=== PATIENT | female | born 1980 | race Caucasian/White ===

== ENCOUNTER 2024-11-11 15:49 | Emergency (ER) | payer OTHER, SELFPAY ==
--- NOTE | ~2024-11-11 | XR_ITS ---
XR chest 2V Ordering provider: Ryan Saldaña MD History: 44 years Female with . dyspnea on exertion . Comparison: None. FINDINGS: MEDIASTINUM: The cardiac silhouette is not enlarged. LUNGS: No infiltrates, effusions or pneumothorax. OTHER: No free air under the diaphragm. Degenerative changes of the spine. IMPRESSION: No acute cardiopulmonary pathology. Reviewed, dictated and finalized at location A.
--- OUTSIDE RECORDS SUMMARY | 2024-11-11 15:51 | XMS_ITS | Clinical Summary ---
Author Organization [facility] Address [address] [facility] [place] [address] Phone Care Team Providers Care Ledger Poster Name Role Phone Swapna Soares Caitlin PAYNE Primary Care Provider Allergies Active Allergy Reactions Criticality Noted Date Comments Cephalexin Hives Medium 03/06/2017 Medications meclizine (ANTIVERT) 25 MG Tablet Take by mouth. Active FLUoxetine (PROZAC) 20 MG Capsule 02/28/2017 Active TRUE METRIX BLOOD GLUCOSE TEST Strip 12/26/2016 Active TRUEPLUS LANCETS 30G Misc 12/26/2016 Active JANUVIA 25 MG Tablet 01/24/2017 Active traZODone (DESYREL) 50 MG Tablet 02/28/2017 Active Active Problems Problem Noted Date Diagnosed Date Vertigo 04/02/2017 Family History Medical History Relation Name Comments Breast Cancer Maternal Aunt Ovarian Cancer Maternal Aunt Relation Name Status Comments Maternal Aunt Social History Tobacco Use Types Packs/Day Years Used Date Smoking Tobacco: Every Day Smokeless Tobacco: Never Tobacco Cessation:Ready to Q uit: No Alcohol Use Standard Drinks/Week Comments No 0 (1 standard drink = 0.6 oz pur e alcohol) Comments No Sex and Gender Information Value Date Recorded Sex Assigned at Not on file Legal Sex Female 11:31 PM CDT Gender Identity Not on file Sexual Orientation Not on file Last Filed Vital Signs Vital Sign Reading Time Taken Comments Blood Pressure 122/88 04/17/2018 10:51 AM CDT Pulse 79 04/17/2018 10:51 AM CDT Temperature 36.7 C (98.1 F) 04/17/2018 9:37 AM CDT Respiratory Rate 18 04/17/2018 9:37 AM CDT Oxygen Saturation 97% 04/17/2018 9:37 AM CDT Inhaled Oxygen Concentration - - Weight 80.6 kg (177 lb 9.6 oz) 04/17/2018 9:37 A M CDT Height 157.5 cm (5' 2) 04/17/2018 9:37 AM CDT Body Mass Index 32.48 04/17/2018 9:37 AM CDT Plan of Treatment Health Maintenance Due Date Last Done Comments Hepatitis C Virus (HCV) Screening 1979 TdaP Immunization 1979 Hepatitis B Immunization (1 of 3 - 19+ 3-dose series) 1998 Influenza Immunization (#1) 2024 SARS-COV-2 Immunization ( - 2023- season) 2024 Colonoscopy 2024 Colorectal Cancer Screening 2024 Respiratory Syncytial Virus (RSV) Immunization (Adult) (1 - 1-dose 75+ series) 2054 Discussion re Starting/Frequ ency of Mammograms Discontinued 01/11/2017 Meningococcal Immunization (ACWY) Aged Out No longer eligible based on patient's age to complete this topic Pneumococcal Immunization Combined Aged Out No longer eligible b ased on patient's age to complete this topic Rotavirus Immunization Aged Out No lo nger eligible based on patient's age to complete this topic Procedures Procedure Name Priority Date/Time Associated Diagnosis Comments [facility] DIAG BILATERAL DIGITAL W CAD Routine 01/11/2017 10:18 AM CDT Solitary cyst of left breast from Last 3 Months or Most Recently Relevant to Health Maintenance Results * [facility] DIAG BILATERAL DIGITAL W CAD (01/11/2017 10:18 AM CDT) Anatomical Region Laterality Modality breast Bilateral Mammography 01/11/2017 9:42 AM CDT Narrative 01/11/2017 5:06 PM CDT - [facility] DIAG BILATERAL DIGITAL W CAD BILATERAL DIGITAL DIAGNOSTIC MAMMOGRAM WITH CAD WITH MEDIOLATERAL MEDIOLATERAL OBLIQUE CRANIOCAUDAL: 01/11/2017 The study was acquired using digital technology and interpreted from soft copy. Current study was also evaluated with ICAD version 7.2. CLINICAL: Diagnostic baseline study. No personal history of cancer. Maternal aunt had breast cancer. Maternal aunt with ovarian cancer. Palpable lump right breast. COMPARISONS: Comparison is made to exams dated: 11/20/2012, 11/12/2012, and 11/13/2011 [facility]. BREAST TISSUE: The tissue of both breasts is predominantly fatty. FINDINGS: There is no abnormality seen in the right breast to correspond with the palpable lump indicated by a triangular skin marker. There is no abnormality seen in the right breast to correspond with the non-bloody nipple discharge. There is a mole marker on the left breast. No significant masses, calcifications, or other findings are seen in either breast. IMPRESSION: BI-RAD 0 ADDITIONAL IMAGING EVALUATION NEEDED There is no abnormality seen in the right breast to correspond with the palpable lump or the non-bloody nipple discharge. Ultrasound is performed. Dona Soto M.D. pw/:01/11/2017 10:21:01 Cell Room Operator: Sharonda Krishnamurthy(Lionel), [facility] Reading location: [facility] BI-RADS: 0 Additional Imaging Evaluation Needed Procedure Note Dona Soto MD - 01/11/2017 - [facility] DIAG BILATERAL DIGITAL W CAD BILATERAL DIGITAL DIAGNOSTIC MAMMOGRAM WITH CAD WITH MEDIOLATERAL MEDIOLATERAL OBLIQUE CRANIOCAUDAL: 01/11/2017 The study was acquired using digital technology and interpreted from soft copy. Current study was also evaluated with ICAD version 7.2. CLINICAL: Diagnostic baseline study. No personal history of cancer. Maternal aunt had breast cancer. Maternal aunt with ovarian cancer. Palpable lump right breast. COMPARISONS: Comparison is made to exams dated: 11/20/2012, 11/12/2012, and 11/13/2011 [facility]. BREAST TISSUE: The tissue of both breasts is predominantly fatty. FINDINGS: There is no abnormality seen in the right breast to correspond with the palpable lump indicated by a triangular skin marker. There is no abnormality seen in the right breast to correspond with the non-bloody nipple discharge. There is a mole marker on the left breast. No significant masses, calcifications, or other findings are seen in either breast. IMPRESSION: BI-RAD 0 ADDITIONAL IMAGING EVALUATION NEEDED There is no abnormality seen in the right breast to correspond with the palpable lump or the non-bloody nipple discharge. Ultrasound is performed. Dona oSto M.D. pw/:01/11/2017 10:21:01 Cell Room Operator: Sharonda Krishnamurthy(R), [facility] Reading location: [facility] BI-RADS: 0 Additional Imaging Evaluation Needed us Dragan Jie IMG MAMMO ORDERABLES Final Resul t from Last 3 Months or Most Recently Relevant to Health Maintenance Insurance MEDICAID [employer] Care Teams Ledger Poster Relationship Specialty Start Date End Date Swapna Soares APRN [address] [place] [address] [address] [place] [address] PCP - General Family Medicine 12/04/16
--- OUTSIDE RECORDS SUMMARY | 2024-11-11 15:51 | XMS_ITS | Clinical Summary ---
Author Organization [facility] Address [facility] [facility] [place] [address] Care Team Providers Care Leaf Stripper Name Role Phone Charlette Blankenship PA-C Primary Care Provider + Source Comments [facility] [employer],non-owned Affiliates and Associated Physician Practices is amultiple site organization consisting of ambulatory clinics and hospital sitesin [place], [place], [place] and [place]. This disclosure is being madepursuant to the Care Everywhere program and may not contain all information available regarding this patient. Last updated 18.[facility] [employer] Allergies Active Allergy Reactions Criticality Noted Date Comments Cephalexin Urticaria High 03/06/2017 Medications * Be aware that medications may not be up to date on this document. Alwaysverify current medications with the patient. albuterol HFA (Proventil; Ventolin; Proair) 108 (90 Base) MCG/ACT inhaler Take 2 (two) puffs by mouth every 4 hours as needed Active ammonium lactate (Lac-Hydrin) 12 % lotion Apply 1 application every day by topical route as directed for 30 days. 3 Active atorvastatin (Lipitor) 40 MG tablet TAKE 1 TABLET BY MOUTH ONCE DAILY IN THE EVENING FOR 30 DAYS Active cetirizine (ZyrTEC) 10 MG tablet TAKE 1 TABLET BY MOUTH ONCE DAILY DIRECTED FOR 30 DAYS Active clotrimazole (Lotrimin AF) 1 % solution APPLY TO THE AFFECTED AND SURROUNDING AREAS OF SKIN BY TOPICAL ROUTE 2 TIMES PER DAY IN THE MORNING AND EVENING 3 Active FLUoxetine (PROzac) 40 MG capsule Take 1 (one) capsule by mouth once daily Active fluticasone propionate (Flonase) 50 MCG/ACT nasal spray USE 1 SPRAY(S) IN EACH NOSTRIL ONCE DAILY NEEDED Active hydrOXYzine HCl (Atarax) 10 MG tablet Take 1 (one) tablet by mouth 2 times daily as needed Active meclizine (Antivert) 25 MG tablet Active metFORMIN CR osmotic 24hr (Fortamet) 1000 MG (OSM) tablet TAKE 1 BY MOUTH TWICE DAILY Active spironolactone (Aldactone) 100 MG tablet Take 1 (one) tablet by mouth once daily 30 tablet 11 3 Active minoxidil (Rogaine Extra Strength) 5 % foam Apply to affected area once daily 60 g 3 Active Active Problems Problem Noted Date Diagnosed Date 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 Chronic obstructive lung disease 04/30/2022 03/16/2023 Erythrocytosis 05/03/2019 03/16/2023 Social History Tobacco Use Types Packs/Day Years Used Date Smoking Tobacco: Never Assessed Comments Unknown Sex and Gender Information Value Date Recorded Sex Assigned at Not on file Legal Sex Female 6:03 AM CLOD PULLER Gender Identity Not on file Sexual Orientation Not on file Plan of Treatment Health Maintenance Due Date Last Done Comments COLOGUARD (AGES 45-75) - COLON CA SCREENING 1979 COLON MONITORING 1979 COLONOSCOPY - COLON CA SCREENING 1979 CT COLONOGRAPHY - COLON CA SCREENING 1979 Colorectal Cancer Screening 1979 FIT - COLON CA SCREENING 1979 FLEX SIG - COLON CA SCREENING 1979 MAMMOGRAM 1979 PAP SMEAR 1979 HIV SCREENING 1994 HEPATITIS C SCREENING 05/03/1997 DTAP/TDAP/TD VACCINES (1 - Tdap) 1998 HEPATITIS B VACCINE (1 of 3 - 19+ 3-dose series) 1998 PNEUMOCOCCAL VACCINE (1 of 2 - PCV) 1998 COVID-19 VACCINE ( - season) 2024 06/02/2021, 10/21/2020, 10/06/2020, Additional history exists DEPRESSION SCREENING 06/17/2024 INFLUENZA VACCINE (Season Ended) 2025 ZOSTER VACCINE (1 of 2) 2029 HIB VACCINE Aged Out No longer eligi ble based on patient's age to complete this topic HPV VACCINE Aged Out No longer eligi ble based on patient's age to complete this topic MENINGOCOCCAL (Group B) VACCINE SHARED DECISION-MAKING Aged Out No longer eligible based on patient's age to complete this topic MENINGOCOCCAL GROUPS A/C/Y/W VACCINE Aged Out No longer eligible based on patient's age to complete this topic Insurance Care Teams Leaf Stripper Relationship Specialty Start Date End Date Charlette Blankenship PA-C [address] [place] [phone] PCP - General Physician Investor Relations Manager 02/08/23
--- OUTSIDE RECORDS SUMMARY | 2024-11-11 15:51 | XMS_ITS | CONTINUITY OF CARE DOCUMENT ---
Author Name cassie matthews Address Unknown Organization [facility] Address [address] [facility] [address] [place] [address] Phone [phone] Care Team Providers Care Household Appliance Assembler Name Role Phone [place] Marshall MD Unavailable RUSSELL URIAS Unavailable RUSSELL URIAS Unavailable INSURANCE PROVIDERS Payer name Policy type / Coverage type [place] red libertarian [place] MEDICAID (2) Medicaid [id number]
[2024-11-11 15:53] VITALS: BP 146/96; PULSE 96; RESP 16; TEMP 36.4; O2SAT 99
--- NOTE | 2024-11-11 15:56 | ECG_ITS ---
Test Date: 2024-11-11 16:01:39 Measurements Intervals [place] Rate: 87 P: 64 DE: 138 QRS: -9 QRSD: 87 T: 37 QT: 361 QTc: 434 Interpretive Statements SINUS RHYTHM LEFT ATRIAL ENLARGEMENT [-0.15mV P WAVE IN V1/V2] LOW QRS VOLTAGE IN PRECORDIAL LEADS [QRS DEFLECTION < 1.0 mV IN CHEST LEADS] SEPTAL MYOCARDIAL INFARCTION , OF INDETERMINATE AGE [40+ ms Q WAVE IN V1/V2] No previous ECG available for comparison Electronically Signed On 11-12-2024 15:12:13 CDT by Francisco Layton M.D.
[2024-11-11 16:20] LABS: Basophils Absolute Auto 0.1 K/mm3 (0.0-0.1); Basophils Percent Auto 0.6 % (0.2-1.2); Eosinophils Absolute Auto 0.2 K/mm3 (0-0.3); Eosinophils Percent Auto 1.5 % (0-4.4); Hematocrit 46.2 % (37.0-47.0); Hemoglobin 15.7 g/dL (12.0-15.0); Immature Granulocyte Absolute 0.07 K/mm3 (0.00-0.031); Immature Granulocyte Percent A 0.5 % (0-0.5); Lymphocytes Absolute Auto 2.17 K/mm3 (0.9-3.2); Mean Corpuscular Hemoglobin 31.9 pg (26-34); Mean Corpuscular Volume 93.9 fl (80-100); Mean Platelet Volume 9.6 fl (7.4-10.4); Monocytes Absolute Auto 1.1 K/mm3 (0.1-0.6); Monocytes Percent Auto 7.9 % (2.6-8.5); Neutrophils Absolute Auto 10.8 K/mm3 (1.3-6.7); Neutrophils Percent Auto 74.5 % (45.5-73.1); Platelet Count Result 343 k/mm3 (150-375); Red Blood Count 4.92 M/mm3 (4.2-5.4); White Blood Count 14.4 K/mm3 (4.5-10.0)
[2024-11-11 16:30] LABS: Alanine Aminotransferase 20 U/L (6-35); Albumin Level 4.9 g/dL (3.5-5.1); Alkaline Phosphatase 73 U/L (38-126); Anion Gap 10 mmol/L (4-12); Aspartate Amino Transferase 26 U/L (14-36); Bilirubin,Total 0.5 mg/dL (0.2-1.3); Blood Urea Nitrogen 7 mg/dL (7-17); Calcium 9.8 mg/dL (8.4-10.2); Carbon Dioxide 25 mmol/L (22-30); Chloride 103 mmol/L (98-107); Estimated CRCL calculation 106 ml/min; Estimated Glomerular Filt Rate > 60; Glucose 126 mg/dL (65-110); Potassium 4.3 mmol/L (3.4-5.0); Sodium 138 mmol/L (137-145)
[2024-11-11 16:31] LABS: Prothrombin Time 13.1 Seconds (11.1-14.7)
[2024-11-11 16:33] LABS: Partial Thromboplastin Time 26.9 Seconds (22.3-36.8)
--- NOTE | 2024-11-11 16:40 | ED.CHESTPAIN ---
HPI - Chest Pain General Chief Complaint: Chest Pain <Apoorva Flood PA-C - Last Filed: 11/12/24 09:22> Stated Complaint: Chest/arm pain x 3-4 days <Apoorva Flood PA-C - Last Filed: 11/12/24 09:22> Time Seen by Provider: 11/11/24 16:40 <Apoorva Flood PA-C - Last Filed: 11/12/24 09:22> Focused HPI: This is a 44 year old female that presents to the ER for exertional shortness of breath. Ongoing over the last 4 days. Reports associated chest discomfort. Reports radiation into the arms. No history of CAD. She is a smoker. Reports family history of CAD. Denies fever, cough, lower extremity edema. GENERAL: Well-appearing, well-nourished, and in no acute distress. HEAD: Normocephalic, atraumatic. CHEST: Clear to auscultation. ?No respiratory distress. HEART: Regular rate and rhythm.? NEURO: ?Alert and oriented x3. Patient screened in triage and initial orders placed.? ?Additional care and disposition to be based upon?diagnostic testing and treatment. <MICHAEL Fajardo Last Filed: 11/12/24 09:22> Related Data Allergies/Adverse Reactions: Allergies Allergy/AdvReac Type Severity Reaction Status Date / Time cephalexin Allergy Intermediate Hives Verified 11/11/24 15:50 <Apoorva Flood PA-C - Last Filed: 11/12/24 09:22> Review of Systems Review of Systems: All systems reviewed & are unremarkable except as noted in HPI and below <Tianna Huffman APRN - Last Filed: 11/11/24 20:21> PMFSH Past Medical History Medical History: Medical History History of diabetes mellitus History of hypertension <Apoorva Flood PA-C - Last Filed: 11/12/24 09:22> Social History Social History: Social History Smoking status: Current every day smoker <Apoorva Flood PA-C - Last Filed: 11/12/24 09:22> Exam Narrative: GENERAL: Well appearing, well-nourished, non-toxic, in no acute distress. HEAD: Normocephalic, atraumatic. NECK: Supple. No adenopathy, no masses. RESPIRATORY: Airway patent, respirations nonlabored. Clear to auscultation bilaterally, no rales, rhonchi, wheezing. CARDIOVASCULAR: Regular rate and rhythm without murmurs, rubs, or gallops. Peripheral pulses 2+ and equal bilaterally. ABDOMINAL: Soft, nontender, nondistended, no hepatosplenomegaly. Normoactive BS. MUSCULOSKELETAL: Moves all extremities. Strength/ROM intact without gross deformities. SKIN: Warm, dry, normal color. No rashes. NEURO: A&O X3. Speech clear. Cranial nerves II-XII intact. No ataxic movements. PSYCHIATRIC: Appropriate mood and affect. Normal interaction. <Tianna Huffman APRN - Last Filed: 11/11/24 20:21> Course Vital Signs Vital signs: Vital Signs Temperature 97.6 F 11/11/24 15:53 Pulse Rate 96 11/11/24 15:53 Respiratory Rate 16 11/11/24 15:53 Blood Pressure 146/96 H 11/11/24 15:53 Pulse Oximetry 99 11/11/24 15:53 Temperature 97.6 F 11/11/24 15:53 Pulse Rate 96 11/11/24 15:53 Respiratory Rate 16 11/11/24 15:53 Blood Pressure 146/96 H 11/11/24 15:53 Pulse Oximetry 99 11/11/24 15:53 <Apoorva Flood PA-C - Last Filed: 11/12/24 09:22> Vital Signs Temperature 97.6 F 11/11/24 15:53 Pulse Rate 96 11/11/24 15:53 Respiratory Rate 16 11/11/24 15:53 Blood Pressure 146/96 H 11/11/24 15:53 Pulse Oximetry 99 11/11/24 15:53 Temperature 97.6 F 11/11/24 15:53 Pulse Rate 96 11/11/24 15:53 Respiratory Rate 16 11/11/24 15:53 Blood Pressure 146/96 H 11/11/24 15:53 Pulse Oximetry 99 11/11/24 15:53 <Tianna Huffman APRN - Last Filed: 11/11/24 20:21> MDM - Chest Pain MDM Narrative Medical decision making narrative: This is a 44 year old female that presents to the ER for exertional shortness of breath. Ongoing over the last 4 days. Reports associated chest discomfort. Reports radiation into the arms. No history of CAD. She is a smoker. Reports family history of CAD. Denies fever, cough, lower extremity edema. Patient has chosen to refuse further care. Risks of an incomplete evaluation and treatment were discussed with the patient, including potential for or permanent disability. Patient seems to understand these risks, but still desires to refuse further care. Patient recommended to follow up with PCP in the next possible interval. Specifically, patient was told they can return to the ED at any time to resume care. <Tianna Huffman APRN - Last Filed: 11/11/24 20:21> Differential Diagnosis Differential diagnosis: Likely atypical chest pain, st elevation myocardial infarction and other (pulmonary embolism) <Tianna Huffman APRN - Last Filed: 11/11/24 20:21> Lab Data Attestation: I reviewed the patient's lab results. <Tianna Huffman APRN - Last Filed: 11/11/24 20:21> Result diagrams: 11/11/24 16:12 11/11/24 16:12 <Apoorva Flood PA-C - Last Filed: 11/12/24 09:22> Labs: Lab Results 11/11/24 Range/Units 16:12 WBC 14.4 H (4.5-10.0) K/mm3 RBC 4.92 (4.2-5.4) M/mm3 Hgb 15.7 H (12.0-15.0) g/dL Hct 46.2 (37.0-47.0) % MCV 93.9 (80-100) fl MCH 31.9 (26-34) pg MCHC 34.0 (32-36) g/dl RDW 13.0 (11.5-14.5) % Plt Count 343 (150-375) k/mm3 MPV 9.6 (7.4-10.4) fl Immature Gran % (Auto) 0.5 (0-0.5) % Neut % (Auto) 74.5 H (45.5-73.1) % Lymph % (Auto) 15.0 L (18.3-44.2) % [place] % (Auto) 7.9 (2.6-8.5) % Eos % (Auto) 1.5 (0-4.4) % Baso % (Auto) 0.6 (0.2-1.2) % Lymph # (Auto) 2.17 (0.9-3.2) K/mm3 [place] # (Auto) 1.1 H (0.1-0.6) K/mm3 Eos # (Auto) 0.2 (0-0.3) K/mm3 Baso # (Auto) 0.1 (0.0-0.1) K/mm3 Abs Immat Gran (auto) 0.07 H (0.00-0.031) K/mm3 Absolute Neuts (auto) 10.8 H (1.3-6.7) K/mm3 Absolute Nucleated RBC 0.000 (0.0-0.012) K/mm3 Nucleated RBC % 0.0 (0.0-0.2) % PT 13.1 (11.1-14.7) Seconds INR 1.0 APTT 26.9 (22.3-36.8) Seconds Sodium 138 (137-145) mmol/L Potassium 4.3 (3.4-5.0) mmol/L Chloride 103 (98-107) mmol/L Carbon Dioxide 25 (22-30) mmol/L Anion Gap 10 (4-12) mmol/L BUN 7 (7-17) mg/dL Creatinine 0.48 L (0.7-1.0) mg/dL Estim Creat Clear Calc 106 ml/min Estimated GFR > 60 (59 - ) Glucose 126 H (65-110) mg/dL Calcium 9.8 (8.4-10.2) mg/dL Total Bilirubin 0.5 (0.2-1.3) mg/dL AST 26 (14-36) U/L ALT 20 (6-35) U/L Alkaline Phosphatase 73 (38-126) U/L Troponin I < 0.012 (0.000-0.034) ng/mL NT-Pro-B Natriuret Pep 71 (19.9-100) pg/mL Total Protein 9.0 H (6.3-8.2) g/dL Albumin 4.9 (3.5-5.1) g/dL <Apoorva Flood PA-C - Last Filed: 11/12/24 09:22> Lab Results 11/11/24 Range/Units 16:12 WBC 14.4 H (4.5-10.0) K/mm3 RBC 4.92 (4.2-5.4) M/mm3 Hgb 15.7 H (12.0-15.0) g/dL Hct 46.2 (37.0-47.0) % MCV 93.9 (80-100) fl MCH 31.9 (26-34) pg MCHC 34.0 (32-36) g/dl RDW 13.0 (11.5-14.5) % Plt Count 343 (150-375) k/mm3 MPV 9.6 (7.4-10.4) fl Immature Gran % (Auto) 0.5 (0-0.5) % Neut % (Auto) 74.5 H (45.5-73.1) % Lymph % (Auto) 15.0 L (18.3-44.2) % [place] % (Auto) 7.9 (2.6-8.5) % Eos % (Auto) 1.5 (0-4.4) % Baso % (Auto) 0.6 (0.2-1.2) % Lymph # (Auto) 2.17 (0.9-3.2) K/mm3 [place] # (Auto) 1.1 H (0.1-0.6) K/mm3 Eos # (Auto) 0.2 (0-0.3) K/mm3 Baso # (Auto) 0.1 (0.0-0.1) K/mm3 Abs Immat Gran (auto) 0.07 H (0.00-0.031) K/mm3 Absolute Neuts (auto) 10.8 H (1.3-6.7) K/mm3 Absolute Nucleated RBC 0.000 (0.0-0.012) K/mm3 Nucleated RBC % 0.0 (0.0-0.2) % PT 13.1 (11.1-14.7) Seconds INR 1.0 APTT 26.9 (22.3-36.8) Seconds Sodium 138 (137-145) mmol/L Potassium 4.3 (3.4-5.0) mmol/L Chloride 103 (98-107) mmol/L Carbon Dioxide 25 (22-30) mmol/L Anion Gap 10 (4-12) mmol/L BUN 7 (7-17) mg/dL Creatinine 0.48 L (0.7-1.0) mg/dL Estim Creat Clear Calc 106 ml/min Estimated GFR > 60 (59 - ) Glucose 126 H (65-110) mg/dL Calcium 9.8 (8.4-10.2) mg/dL Total Bilirubin 0.5 (0.2-1.3) mg/dL AST 26 (14-36) U/L ALT 20 (6-35) U/L Alkaline Phosphatase 73 (38-126) U/L Troponin I < 0.012 (0.000-0.034) ng/mL NT-Pro-B Natriuret Pep 71 (19.9-100) pg/mL Total Protein 9.0 H (6.3-8.2) g/dL Albumin 4.9 (3.5-5.1) g/dL <Tianna Huffman APRN - Last Filed: 11/11/24 20:21> Imaging Data Attestation: I personally reviewed and interpreted this imaging study as follows: <Tianna Huffman APRN - Last Filed: 11/11/24 20:21> Radiologist's impression: Impressions Chest X-Ray 11/11/24 16:15 IMPRESSION: No acute cardiopulmonary pathology. <Tianna Huffman APRN - Last Filed: 11/11/24 20:21> Critical Care Time Critical Care Time Critical Care Time: No <Apoorva Flood PA-C - Last Filed: 11/12/24 09:22> Discharge Plan Discharge Clinical Impression: Shortness of breath Chest pain Qualifiers: Chest pain type: unspecified Qualified Code(s): R07.9 - Chest pain, unspecified <MICHAEL Fajardo Last Filed: 11/12/24 09:22> Patient Disposition: Left Against Medical Advice <MICHAEL Fajardo Filed: 11/12/24 09:22> Condition: Stable <Apoorva Flood PA-C - Last Filed: 11/12/24 09:22> Patient Language: Kinyarwanda <Apoorva Flood PA-C - Last Filed: 11/12/24 09:22> Follow-up/Referrals: Toni,Duglas Whitfield M.D. [Primary Care Provider] - <Apoorva Flood PA-C - Last Filed: 11/12/24 09:22>
[2024-11-11 16:42] LABS: NT Pro B Type Natriuretic Pept 71 pg/mL (19.9-100); Troponin I < 0.012 ng/mL (0.000-0.034)
--- NOTE | 2024-11-11 19:52 | PC.NURSE ---
Pt denying 3 hr troponin at this time.
--- OUTSIDE RECORDS SUMMARY | 2024-11-11 20:20 | XMS_ITS | Clinical Summary ---
Author Organization [facility] Address [facility] [facility] [place] [address] Care Team Providers Care Observatory Director Name Role Phone Charlette Blankenship PA-C Primary Care Provider + Source Comments [facility] [employer],non-owned Affiliates and Associated Physician Practices is amultiple site organization consisting of ambulatory clinics and hospital sitesin [place], [place], [place] and [place]. This disclosure is being madepursuant to the Care Everywhere program and may not contain all information available regarding this patient. Last updated 18.[facility] [employer] Allergies Active Allergy Reactions Criticality Noted Date [...] on file Legal Sex Female 6:03 AM PRINTING ESTIMATOR Gender Identity Not on file Sexual Orientation [...] to complete this topic Insurance Care Teams Observatory Director Relationship Specialty Start Date End Date Charlette Blankenship PA-C [address] [place] [phone] PCP - General Physician Assistant Loan Processor 02/08/23
--- OUTSIDE RECORDS SUMMARY | 2024-11-11 20:20 | XMS_ITS | Clinical Summary ---
Author Organization [facility] Address [address] [facility] [place] [address] Phone Care Team Providers Care Territory Account Manager Name Role Phone Swapna Soares Caitlin PAYNE [...] Procedure Name Priority Date/Time Associated Diagnosis Comments [facility] DIAG BILATERAL DIGITAL W CAD Routine 01/11/2017 10:18 AM CDT Solitary cyst of left breast from Last 3 Months or Most Recently Relevant to Health Maintenance Results * [facility] DIAG BILATERAL DIGITAL W CAD (01/11/2017 10:18 [...] to exams dated: 11/20/2012, 11/12/2012, and 11/13/2011 [facility]. BREAST TISSUE: The tissue of both [...] is performed. Dona Soto M.D. pw/:01/11/2017 10:21:01 [employer]er: Sharonda Krishnamurthy(Lionel), [facility] Reading location: [facility] BI-RADS: 0 Additional Imaging Evaluation Needed Procedure [...] to exams dated: 11/20/2012, 11/12/2012, and 11/13/2011 [facility]. BREAST TISSUE: The tissue of both [...] is performed. Dona Soto M.D. pw/:01/11/2017 10:21:01 Welt Sewer: Sharonda Krishnamurthy(R), [facility] Reading location: [facility] BI-RADS: 0 Additional Imaging Evaluation Needed us Dragan Jie IMG MAMMO ORDERABLES Final Resul t from Last 3 Months or Most Recently Relevant to Health Maintenance Insurance [employer]ID [employer] Care Teams Territory Account Manager Relationship Specialty Start Date End Date Swapna Soares APRN [address] [place] [address] [address] [place] [address] PCP - General Family Medicine 12/04/16
--- OUTSIDE RECORDS SUMMARY | 2024-11-11 20:21 | XMS_ITS | Data Portability ---
Author Organization [facility] Address [address] [place] [address] Care Team Providers Care Ship Steward Name Role Phone PEDRO WOODS Primary Care Provider Assessment Encounter Date Assessment Date Assessment LastModified by Organization Details LastModified Time 10/19/2024 10/19/2024 MATTHEW Cortes [email or web address] Not available 10/19/2024 10:01:44 Plan of Treatment Reminders Order Date Submit Date Provider Last Modified By Organization Details Last Modified Time Details Appointments ACUTE 15 2024 11:45A M PEDRO WOODS PA-C Not available Not available Not available ANY 15 2024 08:30A M PEDRO WOODS PA-C Not available Not available Not available Lab None recorded. Referral hand surgeon referral 2024 025 [email or web address] 246 [facility], [address], [place], [address], 10/21/2024 10:52:43 Procedures upper extremity nerve conductio n study (PROC) - suspect right cubital tunnel ulnar nerve compressi on but please test for carpal tunnel on the right side 2024 025 [facility] Conduction [facility], [address] [facility] [address], [place], [address], 10/23/2024 11:11:19 Surgeries None recorded. Imaging None recorded. Medication Orders diclofena c sodium 75 mg tablet,de layed release 2024 025 [facility], [address] [place] [address], [id number], 10/19/2024 10:13:50 Medrol (Daniel) 4 mg tablets in a dose pack 2024 025 [facility], [address] [place] [address], [id number], 10/19/2024 10:13:51 sertralin e 50 mg tablet 2024 025 [facility] [address], [address] [place] [address], [id number], 10/19/2024 10:13:50 sertralin e 50 mg tablet 2024 025 [facility] [address], [address] [place] [address], [id number], 07/20/2024 12:59:55 chlorhexi dine gluconate 0.12 % mouthwash 2023 024 [facility] [address], [address] [place] [address], [id number], 06/09/2024 15:08:33 acetamino phen 500 mg tablet 2023 025 [facility] [address], [address] [place] [address], [id number], 10/19/2024 10:07:27 sertralin e 50 mg tablet 2023 024 [facility] [address], [address] [place] [address], [id number], 06/09/2024 15:08:34 sertralin e 50 mg tablet 2023 024 [facility] [address], [address] [place] [address], [id number], 05/04/2024 16:35:34 Patient TargetsNo targets recorded. Patient Instructions Encounter Date Encounter Id Patient Instructions Last Modified By Organization Details Last Modified Time 05/04/2024 [id number] A healthy lifestyle: care instructions [email or web address] Not available 05/04/2024 16:35:29 Quitting Tobacco : Care Instructions Not available 05/04/2024 16:35:29 06/09/2024 [id number] A healthy lifestyle: care instructions Not available 06/09/2024 15:08:23 broken tooth: care instructions [email or web address] Not available 06/09/2024 15:08:23 07/20/2024 [id number] A healthy lifestyle: care instructions Not available 07/20/2024 12:59:44 10/19/2024 [id number] A healthy lifestyle: care instructions Not available 10/19/2024 10:13:31 carpal tunnel syndrome: care instructions [email or web address] Not available 10/19/2024 10:13:31 carpal tunnel syndrome: exercises [email or web address] Not available 10/19/2024 10:13:31 Reason for Referral Hand Surgeon Referral for Ca rpal tunnel syndrome of right wrist Referring Physician: Pedro Woods, Family Medicine, Encounter Date: 10/19/2024 Results Created Date Observation Date Name Description Value Unit Range Abnormal Flag Note LastModifiedBy Organization Detail LastModifiedTime 06/05/20 24 03/30/2024 jeff hedrick am No observ ation record ed. [facility] [address] [place], [address], 06/08/2024 12:15:50 Result Notes None recorded. 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, was due for repeat pap 1 year later TRACEY BRIGHT Attn: Davis rebolledo,[address] [facility], [place], [address], [facility] 9 14:06:08 Atypical squamous cells of undetermin ed significan ce on cervical Papanicola ou smear 110927928 Active 12/2016 pap showed + ASCUS and + HPV TRACEY BRIGHT Attn: Davis rebolledo,[address], [place], [address], [place] [facility] 9 14:06:52 Type 2 diabetes mellitus 50488504 Active 2018 Eye exam negative by Genie Terry on 07/12/20 PEDRO WOODS PA-C Attn: Davis rebolledo,[address], [place], [address], [place] [facility] 3 11:42:04 Dizziness 070541987 Active 2018 Holter monitor 12/02 was normal. MRI of brain 10/03 was normal. Follows with Neurologis t in [place]. TRACEY BRIGHT Attn: Davis rebolledo,[address], [place], [address], [place] [facility] 9 17:02:35 Hyperlipid emia 45306091 Active 2018 PEDRO WOODS PA-C Attn: Davis rebolledo,[address], [place], [address], [place] [facility] 3 11:42:08 Erythrocyt osis 336003702 Active 2018 TRACEY BRIGHT Attn: Davis rebolledo,[address], [place], [address], [place] [facility] 9 08:43:51 Chronic obstructiv e pulmonary disease 56256871 Active 2021 PEDRO WOODS PA-C Attn: Davis rebolledo,[address], [place], [address], [place] [facility] 3 11:57:32 Alopecia areata 98039322 Active 2022 TRACEY BRIGHT Attn: Davis g,[address], [place], [address], [place] [facility] 3 11:40:14 Insomnia 027450079 Active 2016 Yvrose Wise RN null, [place] - [facility] 7 11:22:43 Mixed anxiety and depressive disorder 130525143 Active 2016 PEDRO WOODS PA-C Attn: Davis rebolledo,[address] [facility], [place], [address], [facility] 3 11:44:16 Problem Notes None recorded. Procedures Surgical History Date Name Laterality Status Provider Name and Address Organization Details Recorded Time 4 Date of Last Pap Smear completed Marily Krishnamurthy MA [facility] 06/09/2024 14:49:53 3 Routine Foot Care completed STEPHANIE WOOD DPM [address] [place], [address], [facility] 01/01/2023 14:13:56 7 Colposcopy completed Dragan Ceron MD Attn: Merissa,[address] [facility], [place], [address], [facility] 02/01/2017 11:14:54 7 Colposcopy completed Kelly Vidal MA [facility] 02/01/2017 09:52:21 7 Date of Last Mammogram completed Marily Krishnamurthy MA [facility] 06/09/2024 14:51:20 8 Caesarean Section completed Kelly Vidal MA [facility] 01/04/2017 10:50:57 Tubal Ligation completed Kelly Vidal MA [facility] 01/04/2017 10:50:52 Breast Surgery completed Wen Linares [facility] 11/26/2016 12:09:38 Imaging Results None recorded. Procedure Notes None recorded. Medical Equipment None Reported. Allergies Allergen ID Allergen Name Allergen Category Reaction Reaction Severity Criticality Documentation Date Start Date Code Code System Note Provider Name and Address Organization Details Recorded Time [id number] Keflex medicatio n hives severe Not available 04/28/2019 7 RxNorm NENITA Gracia, [facility] 9 14:08:20 Medications Name Sig Start Date Stop Date Status Note LastModified by Organization Details LastModified Time fluoxetine 40 mg capsule TAKE 1 CAPSULE BY MOUTH ONCE DAILY 06/03 completed Not Available Not Available Not Available amoxicillin 500 mg capsule TAKE 1 CAPSULE BY MOUTH EVERY 8 HOURS UNTIL FINISHED 02/13 completed Not Available Not Available Not Available atorvastati n 40 mg tablet TAKE 1 TABLET BY MOUTH ONCE DAILY IN THE EVENING active Not Available Not Available No t Available buspirone 5 mg tablet TAKE 1 TABLET BY MOUTH TWICE DAILY DIRECTED 06/03 completed Not Available Not Available Not Available metformin 500 mg tablet TAKE 2 TABLETS BY MOUTH TWICE DAILY DIRECTED active Not Available Not Available No t Available bupropion HCl SR 150 mg tablet,12 hr sustained-r elease TAKE 1 TABLET BY MOUTH ONCE DAILY FOR 3 DAYS THEN TAKE 1 TABLET TWICE DAILY AND STOP SMOKING 5 7 DAYS AFTER STARTING DIRECTED 05/24 completed Not Available Not Available Not Available doxycycline hyclate 100 mg capsule Take 1 capsule twice a day by oral route as directed for 7 days. 08/16 completed Not Available Not Available Not Available paroxetine 10 mg tablet Take 1 tablet every day by oral route. 12/26 completed Not Available Not Available Not Available clindamycin HCl 300 mg capsule TAKE 1 CAPSULE BY MOUTH EVERY 6 HOURS FOR 10 DAYS 03/09 completed Not Available Not Available Not Available ammonium lactate 12 % lotion Apply 1 applicati on every day by topical route as directed for 30 days. 06/09 completed Not Available Not Available Not Available trazodone 50 mg tablet Take 0.5 tablets every day by oral route at bedtime. 04/28 completed Not Available Not Available Not Available cetirizine 10 mg tablet TAKE 1 TABLET BY MOUTH ONCE DAILY DIRECTED active Not Available Not Available No t Available atorvastati n 10 mg tablet Take 1 tablet every day by oral route. 04/28 completed Not Available Not Available Not Available azithromyci n 250 mg tablet TAKE 2 TABLETS BY MOUTH ON DAY 1, AND THEN TAKE 1 TABLET BY MOUTH ONCE A DAY ON DAY 2 THROUGH DAY 5 11/23 completed Not Available Not Available Not Available ibuprofen 800 mg tablet TAKE 1 TABLET BY MOUTH EVERY 8 HOURS NEEDED FOR PAIN 03/02 completed Not Available Not Available Not Available hydrocodone 5 mg-acetamin ophen 325 mg tablet TAKE 1 TABLET BY MOUTH EVERY 6 HOURS NEEDED 02/13 completed Not Available Not Available Not Available prednisone 20 mg tablet TAKE 1 TABLET BY MOUTH ONCE DAILY FOR 3 DAYS 03/09 completed Not Available Not Available Not Available spironolact one 100 mg tablet TAKE 1 TABLET BY MOUTH ONCE DAILY active Not Available Not Available No t Available fluoxetine 10 mg tablet Take 1 tablet every day by oral route. 2016 active Not Available Not Available Not Avai lable clindamycin HCl 150 mg capsule TAKE 1 CAPSULE BY MOUTH EVERY 6 HOURS AFTER A MEAL FOR 10 DAYS 05/24 completed Not Available Not Available Not Available metronidazo le 500 mg tablet Take 1 tablet every 12 hours by oral route as directed for 7 days. 09/29 completed Not Available Not Available Not Available hydroxyzine HCl 50 mg tablet Take 1 tablet 4 times a day by oral route as needed. 04/28 completed Not Available Not Available Not Available acetaminoph en 300 mg-codeine 30 mg tablet 04/28 completed Not Available Not Available Not Available dextrometho rphan-guaif enesin 10 mg-100 mg/5 mL oral syrup Take 10 mL every 4 hours by oral route as needed for 4 days. 08/03 completed Not Available Not Available Not Available ciprofloxac in 500 mg tablet 01/23 completed Not Available Not Available Not Available sulfamethox azole 800 mg-trimetho prim 160 mg tablet Take 1 tablet every 12 hours by oral route as directed for 5 days. 02/16 completed Not Available Not Available Not Available tramadol 50 mg tablet Take 1 tablet every 6 hours by oral route as needed for 10 days. 02/01 completed Not Available Not Available Not Available acetaminoph en 500 mg tablet Take 2 tablets every 6 hours by oral route for 30 days. 10/19 completed Not Available Not Available Not Available triamcinolo ne acetonide 0.025 % topical cream APPLY A THIN LAYER TO THE AFFECTED AREA(S) BY TOPICAL ROUTE 2 TIMES PER DAY-hands 04/28 completed Not Available Not Available Not Available OneTouch Ultra Test strips USE 1 STRIP TO CHECK GLUCOSE ONCE DAILY IN THE MORNING active Not Available Not Available No t Available meclizine 25 mg tablet Take 1 tablet every 8 hours by oral route as needed. 04/28 completed Not Available Not Available Not Available benzonatate 100 mg capsule Take 1 capsule 3 times a day by oral route as needed for 10 days. 08/03 completed Not Available Not Available Not Available metronidazo le 0.75 % topical cream APPLY A THIN LAYER TOPICALLY TO AFFECTED AREA(S) TWICE DAILY IN THE MORNING AND EVENING 09/01 completed Not Available Not Available Not Available clotrimazol e 1 % topical solution APPLY TO THE AFFECTED AND SURROUNDI NG AREAS OF SKIN BY TOPICAL ROUTE 2 TIMES PER DAY IN THE MORNING AND EVENING 2022 active Not Available Not Available Not Avai lable fluoxetine 10 mg capsule Take 1 capsule twice a day by oral route as directed for 30 days. 05/25 completed Not Available Not Available Not Available sertraline 25 mg tablet TAKE 1 TABLET BY MOUTH ONCE DAILY active Not Available Not Available No t Available diclofenac sodium 75 mg tablet,ciaran yed release TAKE 1 TABLET BY MOUTH TWICE DAILY active Not Available Not Available No t Available hydroxyzine HCl 25 mg tablet Take 1 tablet every day by oral route at bedtime for 30 days. 08/23 completed Not Available Not Available Not Available Tussin DM 10 mg-100 mg/5 mL oral liquid 05/01 completed Not Available Not Available Not Available amoxicillin 400 mg/5 mL oral suspension TAKE 10 ML BY MOUTH EVERY 8 HOURS FOR 10 DAYS 09/01 completed Not Available Not Available Not Available ibuprofen 600 mg tablet TAKE 1 TABLET BY MOUTH EVERY 6 HOURS NEEDED WITH FOOD 03/02 completed Not Available Not Available Not Available methylpredn isolone 4 mg tablets in a dose pack TAKE BY MOUTH DIRECTED ON INSIDE OF PACKAGE active Not Available Not Available No t Available albuterol sulfate HFA 90 mcg/actuati on aerosol inhaler INHALE 2 PUFFS BY MOUTH EVERY 4 TO 6 HOURS NEEDED active Not Available Not Available No t Available ketorolac 60 mg/2 mL intramuscul ar solution Inject 2 mL every day by intramusc ular route. 04/23 completed Not Available Not Available Not Available hydroxyzine HCl 10 mg tablet TAKE 1 TABLET BY MOUTH TWICE DAILY NEEDED 09/01 completed Not Available Not Available Not Available fluoxetine 20 mg capsule TAKE 1 CAPSULE BY MOUTH ONCE DAILY IN THE MORNING FOR 30 DAYS 08/23 completed Not Available Not Available Not Available fluticasone propionate 50 mcg/actuati on nasal spray,suspe nsion USE 1 SPRAY(S) IN EACH NOSTRIL ONCE DAILY NEEDED 06/03 completed Not Available Not Available Not Available metformin ER 500 mg tablet,exte nded release 24 hr TAKE 1 TABLET BY MOUTH 4 TIMES DAILY DIRECTED active Not Available Not Available No t Available sertraline 50 mg tablet TAKE 1 TABLET BY MOUTH ONCE DAILY active Not Available Not Available No t Available doxycycline hyclate 100 mg tablet TAKE 1 TABLET BY MOUTH TWICE DAILY 10/19 completed Not Available Not Available Not Available Hibiclens 4 % topical liquid Apply 1 applicati on every 72 hours by topical route as directed for 30 days. 09/29 completed Not Available Not Available Not Available glipizide 5 mg tablet TAKE 1 TABLET BY MOUTH ONCE DAILY BEFORE MEAL(S) active Not Available Not Available No t Available naproxen 500 mg tablet TAKE 1 TABLET BY MOUTH TWICE DAILY NEEDED 10/19 completed Not Available Not Available Not Available amoxicillin 875 mg-potassiu m clavulanate 125 mg tablet Take 1 tablet every 12 hours by oral route with meals for 7 days. 06/09 completed Not Available Not Available Not Available Adult Low Dose Aspirin 81 mg tablet,ciaran yed release Take 1 tablet every day by oral route. 04/28 completed Not Available Not Available Not Available Lotrimin Ultra 1 % topical cream APPLY TO THE AFFECTED AND SURROUNDI NG AREAS OF SKIN BY TOPICAL ROUTE ONCE DAILY to arm 04/28 completed Not Available Not Available Not Available Alcohol Prep Pads ONCE DAILY active Not Available Not Available No t Available metformin ER 1,000 mg tablet,exte nded release 24hr (osmotic) TAKE 1 BY MOUTH TWICE DAILY 04/06 completed Not Available Not Available Not Available nitrofurant oin monohydrate /macrocryst als 100 mg capsule Take 1 capsule every 12 hours by oral route as directed for 5 days. 05/01 completed Not Available Not Available Not Available chlorhexidi ne gluconate 0.12 % mouthwash Place 15 mL twice a day by mucous membrane route. active Not Available Not Available No t Available metformin ER 500 mg 24 hr tablet,exte nded release (gastric retention) 05/01 completed Not Available Not Available Not Available Januvia 25 mg tablet Take 1 tablet every day by oral route. 04/28 completed Not Available Not Available Not Available Januvia 100 mg tablet TAKE 1 TABLET BY MOUTH ONCE DAILY DIRECTED FOR 30 DAYS 08/30 completed Not Available Not Available Not Available olopatadine 0.2 % eye drops 08/23 completed Not Available Not Available Not Available Symbicort 160 mcg-4.5 mcg/actuati on HFA aerosol inhaler INHALE 2 PUFFS BY MOUTH TWICE DAILY DIRECTED active Not Available Not Available No t Available metformin ER 1,000 mg 24 hr tablet,exte nded release (gastric reten.) Take by oral route for 30 days. 03/29 completed Not Available Not Available Not Available fluoxetine 60 mg tablet TAKE 1 TABLET BY MOUTH ONCE DAILY active Not Available Not Available No t Available Farxiga 5 mg tablet TAKE 1 TABLET BY MOUTH ONCE DAILY DIRECTED FOR 30 DAYS 03/02 completed Not Available Not Available Not Available OneTouch Verio Flex Meter USE TO TEST BLOOD SUGARS ONCE DAILY 05/24 completed Not Available Not Available Not Available OneTouch Ultra Blue Test Strip TEST ONCE A DAY EVERY DAY 08/16 completed Not Available Not Available Not Available OneTouch Delica Plus Lancet 33 gauge USE 1 TO CHECK GLUCOSE ONCE DAILY 08/30 completed Not Available Not Available Not Available OneTouch Delica Plus Lancet 30 gauge USE TO USE TO CHECK BLOOD SUGAR BLOOD SUGAR. 08/16 completed Not Available Not Available Not Available Fluzone Quad (PF) 60 mcg (15 mcg x 4)/0.5 mL IM syringe 08/16 completed Not Available Not Available Not Available Paxlovid 300 mg (150 mg x 2)-100 mg tablets in a dose pack Take 1 dose pk every day by oral route as directed. 08/03 completed Not Available Not Available Not Available Vitals Date Recorded Body height Body mass index (BMI) Body weight Body temperature Oxygen saturation Oxygen saturation in Arterial blood by Pulse oximetry Heart rate Systolic blood pressure Diastolic blood pressure Provider Name and Address Organization Details Last Updated DateTime 5 157.48 cm 26.8 kg/m2 20637.5 6 g 98 [degF] 97 % 97 % 79 /min 126 mm[Hg] 68 mm[Hg] Angeli Dc MA [facility] 5 12:09:49 Date Recorded Body height Body mass index (BMI) Body weight Oxygen saturation Oxygen saturation in Arterial blood by Pulse oximetry Heart rate Systolic blood pressure Diastolic blood pressure Provider Name and Address Organization Details Last Updated DateTime 5 157.48 cm 26.2 kg/m2 37004.7 1 g 99 % 99 % 74 /min 100 mm[Hg] 66 mm[Hg] Pam Major MA [facility] 5 09:44:31 Date Recorded Body height Respiratory rate Oxygen saturation Oxygen saturation in Arterial blood by Pulse oximetry Heart rate Body mass index (BMI) Body weight Systolic blood pressure Diastolic blood pressure Provider Name and Address Organization Details Last Updated DateTime 5 157.48 cm 18 /min 97 % 97 % 85 /min 26.2 kg/m2 02160.1 5 g 121 mm[Hg] 58 mm[Hg] Lauro Chowdhury MA [facility] 5 14:40:27 Date Recorded Body height Body mass index (BMI) Body weight Oxygen saturation Oxygen saturation in Arterial blood by Pulse oximetry Heart rate Respiratory rate Systolic blood pressure Diastolic blood pressure Provider Name and Address Organization Details Last Updated DateTime 4 157.48 cm 27.6 kg/m2 18301.8 g 97 % 97 % 66 /min 18 /min 120 mm[Hg] 74 mm[Hg] Jojo Dawson MA [facility] 4 16:15:15 Date Recorded Body height Body mass index (BMI) Body weight Oxygen saturation Oxygen saturation in Arterial blood by Pulse oximetry Heart rate Systolic blood pressure Diastolic blood pressure Provider Name and Address Organization Details Last Updated DateTime 4 157.48 cm 27.5 kg/m2 94340.3 1 g 97 % 97 % 77 /min 126 mm[Hg] 74 mm[Hg] Marily Krishnamurthy MA [facility] 4 14:53:04 Social History Question Answer Notes LastModified by Organizat ion Details LastModified Time Tobacco Smoking Status Current Every Day Smoker Wen Vijay [facility], [facility] 11/26/2016 12:04:52 Do You Have An Advance Directive? No Information n ot available 10/26/2021 What Is Your Level Of Caffeine Consumption? Heavy Information not available 04/28/2019 In The 14 Days Before Symptom Onset, Have You Had Close Contact With A Laboratory-confirm ed COVID-19 While That Case Was Ill? No Information n ot available 10/26/2021 In The 14 Days Before Symptom Onset, Have You Had Close Contact With A Person Who Is Under Investigation For COVID-19 While That Person Was Ill? No Information not available 10/26/2021 Have You Been To An Area Known To Be High Risk For COVID-19? No Information not available 10/26/2021 What Type Of Diet Are You Following? REGULAR Information n ot available 04/28/2019 Live Alone Or With Others? With Others Information not available 04/28/2019 Do You Have A Medical Power Of Mica Sizer? No [email or web address] Information not available 01/01/2023 What Was The Date Of Your Most Recent Tobacco Screening? 10/22/2024 [email or web address] Information not available 10/22/2024 How Many Children Do You Have? 2 Information not available 04/28/2019 What Is Your Relationship Status? Information not available 10/26/2021 Are You Sexually Active? Yes Information not available 04/28/2019 Do You Have Smoke And Carbon Monoxide Detectors In Your Home? Yes Information not available 10/26/2021 Are You Passively Exposed To Smoke? Yes Information no t available 05/01/2022 How Much Tobacco Do You Smoke? 1 PPD [email or web address] Information not available 09/02/2023 Has Tobacco Cessation Counseling Been Provided? Yes Information not available 05/01/2022 On What Date Was Tobacco Cessation Counseling Provided? 06/09/2024 [email or web address] Information not available 06/09/2024 How Many Years Have You Smoked Tobacco? 22 [email or web address] Information not available 11/26/2016 Sex: Female Functional Status Question Answer Note LastModified by Organizat ion Details LastModified Time Do you use any illicit or recreational drugs? Yes marijuana Information not available 08/23/2022 Do you or have you ever used any other forms of tobacco or nicotine? No [email or web address] Information not available 03/02/2021 What is your level of alcohol consumption? Occasional Information not available 04/28/2019 Do you or have you ever used smokeless tobacco? Never used smokeless tobacco Information not available 02/17/2020 Are you currently employed? Yes Information not available 10/26/2021 Are you able to care for yourself? Yes Information not available 04/28/2019 Do you or have you ever used e-cigarettes or vape? Never used electronic cigarettes Information not available 02/17/2020 Mental Status None recorded. Family History Relationship Description Onset Age of this Age Resolved Age Notes LastModified by Organization Details LastModified Time Mother Asthma [email or web address] Not available 0 11/26/2016 12:05:32 Mother Adult attention deficit hyperactivit y disorder cspiller Not available 11/26 12:06:11 Mother Depressive disorder cspiller Not available 2016 12:06:23 Mother Diabetes mellitus cspiller Not available 2016 12:06:39 Mother Hypertensive disorder cspiller Not available 2016 12:06:53 Mother Hypercholest erolemia cspiller Not available 2016 12:07:04 Mother Migraine cspiller Not available 11/26/2016 12:07:17 Father Malignant tumor of colon cspiller Not available 2016 12:07:42 Father Hypertensive disorder cspiller Not available 2016 12:07:53 Maternal Aunt Family history of breast cancer [email or web address] Not available 02/16 09:44:46 Notes:Ovarian cancer Pts Mat ernal Aunt and Sister Medical History Condition Response Depression Y Anxiety Disorder Y Diabetes Y Gynecological History Statement/Question Response Abnormal Pap Y Date of Last Mammogram 01/11/2017 Date of LMP 07/06/2024 STIs/STDs N Duration of Flow (days) 5 Age at Menarche 11 Current Control Method Tubal Ligat ion Age at First Child 16 Sexually Active? Y Menses Monthly Y Date of Last Pap Smear 03/09/2024 Sexual Problems? N LMP Approximate Obstetrics History GPAL:G 4 P 1 1 2 2 Type Value Full Term 1 Induced 1 Spontaneous 1 Premature 1 Living 2 Total 4 Immunizations Vaccine Type Date Status Note Provider Carlos turcios and Address Organization Details Recorded Time COVID-19, mRNA, LNP-S, PF, 30 mcg/0.3 mL dose 1 completed NENITA [place], [place] [facility] 11/23/2022 10:49:56 COVID-19, mRNA, LNP-S, PF, 30 mcg/0.3 mL dose 1 [place] [facility] 11/23/2022 10:49:56 COVID-19, mRNA, LNP-S, PF, 100 mcg/0.5mL dose or 50 mcg/0.25mL dose 1 [place] [facility] 11/23/2022 10:49:55 COVID-19, mRNA, LNP-S, PF, 100 mcg/0.5mL dose or 50 mcg/0.25mL dose 1 [place] [facility] 11/23/2022 10:49:56 Pneumococcal conjugate PCV20, polysaccharide [id number] conjugate, adjuvant, PF 3 [place] [facility] 11/23/2022 10:50:20 Tdap 3 [place] [facility] 11/23/2022 10:50:20 Influenza, split virus, trivalent, PF 4 completed PEDRO WOODS PA-C Attn: Accounting,[address] [facility], [place], [address], [place] [facility] 03/23/2024 12:57:49 COVID-19, mRNA, LNP-S, PF, 30 mcg/0.3 mL dose 1 [place] N[place]ITA [place], [place] [facility] 06/02/2021 10:21:13 Past Encounters Encounter ID Performer Location Encounter Start Date Encounter Closed Date Diagnosis/Indication Diagnosis SNOMED-CT Code Diagnosis ICD10 Code Diagnosis Note [id number] MD Shabbir Powers ([facility] 205) [address] [facility] [place] [address] 11/26/2016 11:51:23 11/27/2016 10:08:59 Mixed anxiety and depressive disorder 454182924 F41.8 Counseled on anxiety/de pression and medication . Encouraged to call for counseling , numbers given. Advised importance of stress reduction- walking, meditation , yoga. Encouraged to seek out help from loved ones and friends to help manage home life. Counseled on seeking help from 911 or go to ER for suicidal or homicidal thoughts. Dizziness 804067190 R42 Counseled on dizziness and differenti als-medica tions discussed, increase fluid intake, avoid alcohol-re ferral to Neurology Overweight 514290682 E66 .3 [id number] MD Shabbir Powers ([facility] 205) [address] [facility] [place] [address] 12/26/2016 10:36:11 12/26/2016 15:27:33 Obesity 404539596 E66.9 Counseled on weight loss-encou rage heart healthy diet and increasing exercise-p ortion control, decreasing processed foods Type 2 tad betes mellitus 90569561 E11.9 Counseled on DM and medication -advise to take blood sugar daily-enco urage healthy diet and exercise-w ill refer to eye dr for DM eye exam Mixed anxi ety and depressive disorder 970675169 F41.8 Counseled on anxiety/de pression and medication -will increase Fluoxetine . Encouraged to call for counseling , numbers given. Advised importance of stress reduction- walking, meditation , yoga. Encouraged to seek out help from loved ones and friends to help manage home life. Eczema 46331038 L30.9 Counseled on eczema and medication -Encourage d to use unscented soap and lotion like Cetaphil/E ucerin TID. . [id number] MD Shabbir Gupta ([facility] 122) [address] [facility] [place] [address] 01/04/2017 10:38:43 01/04/2017 11:55:10 At increased risk of urinary tract infection 542828300 Z91.89 Gynecologi c examination 40259427 Z01.419 Bilateral cyst of breasts [id number] 5112973 N60.02 Venereal d isease screening 015934515 Z11.3 Screening mammography 24 492764 Z12.31 [id number] MD Shabbir Gupta ([facility] 122) [address] [facility] [place] [address] 01/14/2017 16:21:26 01/15/2017 08:44:31 Atypical squamous cells of undetermined significance on cervical Papanicolaou smear 609214086 R87.610 HPV - Sapna n papillomavirus test positive 636545844 R87.619 Genital he rpes simplex 38002844 A60.9 Discussed prodromal and outbreak symptoms. [id number] MD Shabbir Powers ([place] [address]) [address] [facility] [place] [address] 01/23/2017 11:21:09 01/24/2017 12:30:09 Mixed anxiety and depressive disorder 917910708 F41.8 Counseled on anxiety/de pression and medication -will increase Fluoxetine to 40 mg daily. Encouraged to call for counseling , numbers given. Advised importance of stress reduction- walking, meditation , yoga. Encouraged to seek out help from loved ones and friends to help manage home life. Insomnia 622873322 G47.0 0 Counseled on insomnia and medication -encourage good sleep hygiene and stress reduction [id number] MD Shabbir Gupta ([place] [address]) [address] [facility] [place] [address] 02/01/2017 09:49:39 02/01/2017 11:46:15 Atypical squamous cells of undetermined significance on cervical Papanicolaou smear 584077909 R87.448 [id number] MD Shabbir Gupta ([facility] 122) [address] [facility] [place] [address] 02/06/2017 10:12:26 02/06/2017 10:57:28 Cervical intraepithelial neoplasia grade 1 356704606 N87.0 - Repeat pap smear (co-testin g) in 1 year [id number] MD Shabbir Powers ([place] [address]) [address] [facility] [place] [address] 02/28/2017 09:12:18 02/28/2017 10:35:02 Insomnia 516108361 G47.00 Counseled on insomnia and medication (will continue Trazadone) -encourage good sleep hygiene and stress reduction Mixed anxi ety and depressive disorder 335999941 F41.8 Counseled on anxiety/de pression and medication -will continue Fluoxetine at 40 mg daily. Encouraged to call for counseling , numbers given. Advised importance of stress reduction- walking, meditation , yoga. Encouraged to seek out help from loved ones and friends to help manage home life. [id number] MD Shabbir Powers [facility] ([facility] 205) [address] [facility] [address] [place] [address] 09/26/2017 14:35:01 09/30/2017 11:18:54 Mixed anxiety and depressive disorder 622737901 F41.8 Counseled on anxiety/de pression and medication -will continue Fluoxetine at 40 mg daily, controlled . Encouraged to call for counseling , numbers given. Advised importance of stress reduction- walking, meditation , yoga. Encouraged to seek out help from loved ones and friends to help manage home life. Type 2 tad betes mellitus without complication 749860662 E11.9 Counseled on DM-will continue Januvia until seen by endocrine, monitor blood sugars daily, low carb healthy diet and exercise encouraged . Importance of getting her machine and logging blood sugars addressed- as well as seeing endocrine Insomnia 191713714 G47.0 0 Counseled on insomnia and medication (will continue Trazadone at current dose)-enco urage good sleep hygiene and stress reduction [id number] [facility] (Adult Med) [address] [place] [address] 04/28/2019 13:47:09 04/29/2019 10:26:11 Adult health examination 584530760 Z00.00 Will check annual labsPatien t not fasting today, provided her with paperwork and she is to return to office to have this completed Type 2 tad betes mellitus 64383479 E11.9 Last A1C: 9.3 today in the office (04/28/19) Dx at age 14, tx with insulin during pregnancie s, tx with metformin in the past but had nausea, was last started on Januvia but was never able to pick it up Fasting BG range: not checking Current Therapy: not on medication Foot Exam: Will perform at next visit Eye Exam: Visit at [facility] in 06/04 Microalbum in: Checking today Pneumovax 23: Next visit Pt was counseled on low carbohydra te diet to better manage diabetes. We went discussed pt's diet at length and I made specific dietary recommenda tions. I also encouraged regular exercise of 30-60 minutes most days of the week. Pt was encouraged to get yearly diabetic eye exams as well. - Provided patient with DME orders, patient to [facility] water [facility]- Check BS at least once daily in the mornings when fasting- Will start on Metformin 500 mg. Start taking 1 pill qd x 2 weeks then increase to 2 pills qd x 2 weeks- Will continue to titrate medication to max, will likely need another oral medication - return in 1 month Atypical s quamous cells of undetermined significance on cervical Papanicolaou smear 033182970 R87.610 Pap 12/2016 showed + ASCUS and HPVColp + cervical biopsy showed CIN1, rec. follow-up in 1 year No OBGYN care since abnormal pap and biopsy back in 2017. Hx of tubal ligation. - Advised patient to make f/u appointmen t with me for WWE Dizziness 940938548 R42 Complains of constant dizziness and visual disturbanc es x 1 year. Follows with Neurologis t in [place], has not been there for awhile.CT/ MRI imaging has been completed and normal.Car diac work-up has been completed and normal. Currently takes meclizine as needed to help.Would like to get back to seeing neurology again for this issue.Fariha esquivel being told she may have POTS (postural orthostati c tachycardi a syndrome). - Neurology referral sent today Mixed anxi ety and depressive disorder 421488328 F41.8 Hx of depression and anxiety due to multiple life stressors, deaths in the family, and losing jobWas tx'ed with fluoxetine in the past and stated she noticed a difference Has been off medication x 1 yearDenies SI/HI- Will restart fluoxetine , will start with 10 mg qd x 2 weeks then increase to 10 mg bid Epidermoid cyst of skin of ear 105477550 L72.0 Complainin g of nodule on her left ear near one of her old piercings x 1 year.No pain but does feel like it is increasing in sizeOn PE: 1 cm fluid filled cyst present on L auricle. Not TTP.Likely epidermoid cyst of earNo further action needed at this time, if becomes larger/mor e painful, can always refer her Tobacco user 143116629 Z 72.0 Smoke 1/2 - 1 PPD since age 14Complain ing of chronic cough x 1 year, no URI sx- Will start albuterol inhaler, use as needed during episodes of coughing and SOB- May need PFTs in the future- Advised patient to quit smoking, discussed risks of continuing and benefits from quitting, patient to reach out for help when interested in quitting [id number] TRACEY BRIGHT [facility] (Adult Med) [address] [place] [address] 05/25/2019 15:02:08 05/26/2019 11:37:39 Atypical squamous cells of undetermined significance on cervical Papanicolaou smear 875974475 R87.610 Pap 12/2016 showed + ASCUS and HPVColp + cervical biopsy showed CIN1, rec. follow-up in 1 year No OBGYN care since abnormal pap and biopsy back in 2017. Hx of tubal ligation. - Pap smear performed today in the office Gynecologi c examination 50492694 Z01.419 Pap smear and nuswab performed in the office today- Will call with results Discharge from nipple 54 210760 N64.52 Complainin g of white, thick nipple discharge from R breast x 1 year Admits to having multiple boils of skin including on and near breastsHx of breast abscesses being treated surgically On PE: thick, white discharge milked from right breast, possible nodule felt directly under the right nipplePoss ibly due to chronic abscess of skin near nipple- Will check prolactin level to rule out other causes of nipple discharge- Will order US of right breast Screening for malignant neoplasm of breast 544437021 Z12.39 + family history of breast cancer, two aunts both with breast and ovarian cancer and diagnosed in their 30's.No prior mammogramA lso complainin g of right nipple discharge- Provided patient with mammogram order, she understand s she needs to call and schedule appointmen t Mixed anxi ety and depressive disorder 942727244 F41.8 Hx of depression and anxiety due to multiple life stressors, deaths in the family, and losing job Denies SI/HIFluox etine working but would like to increase today- Will increase fluoxetine from 10 mg to 20 mg Hyperlipidemia 54952128 E78.5 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 due to insurance reasons, asked to have this medicine re-ordered Hidradenit is suppurativa 52032837 L73.2 Admits to multiple boils of axilla, breasts, and groin area- Will start hibiclens to decrease bacterial load on skin [id number] [facility] (Adult Med) [address] [place] [address] 09/30/2019 10:15:05 10/08/2019 15:30:03 Mixed anxiety and depressive disorder 066841684 F41.8 Hx of depression and anxiety due to multiple life stressors, deaths in the family, and losing job Denies SI/HI- c/w fluoxetine 20 mg qd Hyperlipidemia 29548573 E78.5 - c/w atorvastat in 40 mg qd Type 2 tad betes mellitus 34460857 E11.9 Last A1C: 9.3 (04/28/19) Dx at age 14, tx with insulin during pregnancie s, tx with metformin in the past but had nausea, was last started on Januvia but was never able to pick it up. Switched her back to lower dose of metformin at last visit, today she states she has been taking januvia instead of metformin (pharmacy states they have not been giving her januvia) Fasting BG range: not checking Current Therapy: not sure at this time Foot Exam: Will perform at next visit Eye Exam: Visit at [facility] 06/04 [facility] in: [place] 05/01/19 Pneumovax 23: Next visit Pt was counseled on low carbohydra te diet to better manage diabetes. We went discussed pt's diet at length and I made specific dietary recommenda tions. I also encouraged regular exercise of 30-60 minutes most days of the week. Pt was encouraged to get yearly diabetic eye exams as well. - Check BS at least once daily in the mornings when fasting- Will start on Metformin 500 mg. Start taking 1 pill qd x 2 weeks then increase to 2 pills qd x 2 weeks.- will add januvia to medication regimen for better control- return in 3 months Recurrent urinary tract infection 419889304 N39.0 [facility] to [facility] ER on 09/01/2019 for dysuria and urinary frequency. UA showed + LE, glucose, and large amount of blood. Culture grew E.Coli.Temitope vitale was sent home with macrobid x 10 days but admits to only taking it x 2 days because she has problems swallowing pills.On the phone today, she feels like the UTI has returned, complainin g of dysuria, urinary frequency, pelvic pain, and possible hematuria x 3-4 days.- will send bactrim tablets so pt. is able to crush pill to help swallow, encouraged her to take medication as prescribed and until completely finished- ensure the blood in the urine has gone away, consider UA at next visit [id number] [facility] (Adult Med) [address] [place] [address] 02/17/2020 10:41:07 02/19/2020 12:47:40 Viral syndrome 313213967 B34.9 Complainin g of fevers, productive cough, SOB, and pleuritic chest pain x 1 weekNo known COVID exposure- due to symptoms, will order COVID test- D/w pt the current pandemic of COVID-19 and call for social isolation in order to blunt the curve and minimize risk and spread. Encouraged patient and family to take restrictio ns seriously. They have verbalized understand ing of such. Community acquired pneumonia 325001971 J18.9 Complainin g of fevers, productive cough, and shortness of breath x 1 week.She is coughing up yellow mucus, notes she coughed really hard one time and ended up coughing up some blood. Her fevers have been between 99-100.5 deg F at home.She has been taking nyquil, nasal spray, and using her albuterol more frequently over the past week. She feels like her symptoms are staying the same and possibly getting worse.Admi ts to posterior thoracic back pain and pleuritic chest pain with breathing. - Will tx empiricall y for CAP, unable to get outpatient chest xray currently due to current symptoms and unknown COVID status- will send augmentin and doxy to cover for infection- will send cetirizine and cough medication - continue with supportive care at home including: - Drink lots of fluids, whatever you like except for alcoholic beverages. - Run a cool-mist humidifier in your room at night. - For sore throat, gargle warm salt water. - Get extra rest and do not over-exert yourself. [id number] [facility] (Adult Med) [address] [place] [address] 08/16/2020 08:04:32 08/17/2020 10:08:17 Type 2 diabetes mellitus 62636940 E11.9 Last A1C: 9.3 (04/28/19) Fasting BG range: not checking Current Therapy: Metformin 500 mg qd (supposed to be taking twice daily) and Januvia 100 mg qd Foot Exam: Will perform at next visit Eye Exam: Visit at [facility] in 06/04 [facility] in: [place] 05/01/19, lab orders placed Pneumovax 23: Next visit Pt was counseled on low carbohydra te diet to better manage diabetes. We went discussed pt's diet at length and I made specific dietary recommenda tions. I also encouraged regular exercise of 30-60 minutes most days of the week. Pt was encouraged to get yearly diabetic eye exams as well. - Check BS at least once daily in the mornings when fasting- C/w Metformin 500 mg and Januvia 100 mg qd- come to office for labs, will adjust medication accordingl y- return in 3 months Mixed anxi ety and depressive disorder 622004923 F41.8 Hx of depression and anxiety due to multiple life stressors, deaths in the family, and losing job. Doing well on current medication . Denies SI/HI- c/w fluoxetine 20 mg qd Hyperlipidemia 60784279 E78.5 Doing well on atorvastat in 40 qhs, due for labs- c/w atorvastat in 40 mg qd Tobacco user 896252742 Z 72.0 Notes she is using her albuterol inhaler 3-4x/day and has been doing this over the past 6 months due to chronic cough and SOB.Rememb ers being told she was developing COPD in the past but no prior PFTs completed. No prior history of asthma.Smo ke 1 PPD since age 14- Will start maintenanc e inhaler since overusing rescue inhaler- c/w albuterol inhaler, use as needed during episodes of coughing and SOB- PFTs placed- Advised patient to quit smoking, discussed risks of continuing and benefits from quitting, patient to reach out for help when interested in quitting Infection of tooth 43708 8007 K04.7 She developed a knot of the left side of her cheek above her lips about 10 days ago. She then started to develop facial swelling yesterday and woke up this morning around 4 am in severe pain with severe facial swelling causing her eye to be half shut.She went to the ER this morning and was told she had a severe tooth infection, she was discharged home with augmentin, ibuprofen, and vicoden.Sh karolina receives dental care at [facility] and plans to call them today to schedule a f/u appointmen t.- continue with medication as prescribed - will get notes from ER visit- call [facility] and get appointmen t scheduled PRAVEEN [id number] [facility] BR[facility] (Adult Med) [facility] [place] [address] 02/13/2021 11:21:46 02/13/2021 12:32:31 Type 2 diabetes mellitus 41962394 E11.9 Last A1C: 10.4 today (02/13/2021 ), 9.5 (09/27/20), 9.3 (04/28/19) Fasting BG range: not checking Current Therapy: Taking Metformin 500 mg QD (BID dosing caused GI issues) and Januvia daily. She has not started the glipizide medication , wanted to discuss with me more before starting. Foot Exam: Will perform at next visit Eye Exam: Visit at [facility] in 06/04 [facility] in: [place] 09/27/2020 Pneumovax 23: Next visit Pt was counseled on low carbohydra te diet to better manage diabetes. We went discussed pt's diet at length and I made specific dietary recommenda tions. I also encouraged regular exercise of 30-60 minutes most days of the week. Pt was encouraged to get yearly diabetic eye exams as well.- limit certain fruits in her diet, notes she eats a lot of watermelon - will reorder DME supplies, check BS at least once daily in the mornings when fasting- C/w Januvia 100 mg qd. Will start Farxiga - c/w metformin 500 mg QD since she can not tolerate BID dosing - start glipizide 5 mg qd x 2 weeks then increase to 5 mg BID, take with food- diagnosed with diabetes at age 14, admits to childhood obesity but also family history of Type 1 Diabetes (her mother). Will order labs to look for Type 1 vs Type 2- return in 3 months Mixed anxi ety and depressive disorder 675468090 F41.8 Hx of depression and anxiety due to multiple life stressors, deaths in the family, and losing job. Doing well on current medication .Denies SI/HI- c/w fluoxetine 20 mg qd Hyperlipidemia 83592392 E78.5 Doing well on atorvastat in 40 qhs- c/w atorvastat in 40 mg qd Tobacco user 144463454 Z 72.0 Remembers being told she was developing COPD in the past but no prior PFTs completed, did not complete after I ordered again at last visitNo prior history of asthma.Smo ke 1 PPD since age 14She is doing better with the symbicort inhaler now, not having to use the albuterol inhaler as often. Very interested in quitting smoking but worried because her and roommate also smoke. She will smoke less cigarettes if she smokes marijuana. She has tried all types of nicotine replacemen t options, none worked for her.- c/w maintenanc e inhaler since overusing rescue inhaler- c/w albuterol inhaler, use as needed during episodes of coughing and SOB- will start Wellbutrin - Advised patient to quit smoking, discussed risks of continuing and benefits from quitting, patient to reach out for help when interested in quitting Obesity 533566594 E66.9 Admits to gaining 13 pounds over the summer, has not been as active due to COVID and admits to eating when she is bored.- encouraged her to start being active more again now that she completed her COVID vaccines- continue to limit certain foods and discussed portion sizes- will discuss more weight loss options at her next visit [id number] [facility] [address] [place] [address] 03/02/2021 10:18:48 03/06/2021 10:54:11 Infection of foot 368035577 L08.9 Left 5th toe, will start abx , and F/U. [id number] TRACEY BRIGHT [facility] (Adult Med) [address] [place] [address] 05/24/2021 09:26:30 05/26/2021 12:34:35 Type 2 diabetes mellitus 75709329 E11.9 Last A1C: 8.8 (05/24/2021 ), 10.4 today (02/13/2021 ), 9.5 (09/27/20), 9.3 (04/28/19) Fasting BG range: 130-140s Current Therapy: Taking Metformin 500 mg BID and Januvia 100 mg daily, glipizide 5mg daily. Foot Exam: [place] 05/24/2021 Eye Exam: Visit at [facility] in 06/04 Microalbum in: [place] 09/27/2020 Pneumovax 23: Discussed today. Pt will schedule visit next week to receive vaccinatio n. Pt was counseled on low carbohydra te diet to better manage diabetes. We went discussed pt's diet at length and I made specific dietary recommenda tions. I also encouraged regular exercise of 30-60 minutes most days of the week. Pt was encouraged to get yearly diabetic eye exams as well. - C/w Januvia 100 mg qd. - C/w glipizide 5 mg QD - Increase Metformin 500 mg from BID to TID.- diagnosed with diabetes at age 14, admits to childhood obesity but also family history of Type 1 Diabetes (her mother). Will order labs to look for Type 1 vs Type 2 - return in 3 months Acute exac erbation of chronic obstructive pulmonary disease 793961494 J44.1 She complains of cough x few weeks. Began feeling ill on Thanksgivi ng, noticing a a temperatur e of 99.9 and a mild sore throat. Symptoms progressed to sinus congestion , rhinorrhea , and cough. She feels much improved, but notes cough is not improving. Cough is productive , describing a brown-dinesh sputum that is new for her. She is taking Mucinex and Robitussin with no relief. Cough is worse at night. Denies ongoing fever, chills, chest pain, or SOB. - DDx: COPD exacerbati on vs bronchitis - Start azithromyc in x 5 days- Start benzonatat e PRN for cough- avoid steroids due to working on good diabetes control Smoker 08787923 F17.200 Now smoking 1/2 PPD, down from 1 PPD. Wellbutrin worked well but caused increased blood sugar. Has tried patches and gum, neither worked. - Advised patient to quit smoking, discussed risks of continuing and benefits from quitting, patient to reach out for help when interested in restarting other cessation options. Carpal armin shukri syndrome 74761162 G56.01 She has R hand paresthesi as and pain x few months. Pain is worse at night and will wake her from sleep. Pain and paresthesi as located over the entire hand. She notes symptoms will occur during the day occasional ly, usually when performing activities with her wrists bent. Denies any swelling, erythema, warmth, neck pain, elbow pain, or known injury. - Suspect carpal tunnel syndrome- Order night braces- Provided instructio ns on exercises and supportive care for symptoms management - Consider ortho referral if no improvemen t. [id number] TRACEY BRIGHT (Peds) [address] [place] [phone] 06/02/2021 10:20:16 06/05/2021 11:10:51 Administration of SARS-CoV-2 mRNA vaccine [id number] Z23 [id number] [facility]ACE[facility] BR[facility] (Adult Med) [address] [place] [phone] 06/13/2021 12:30:41 06/14/2021 16:49:00 Acute bronchitis [id number] J20.9 No improvemen t since last visit with antibiotic sToday, still complainin g of nasal congestion , yellow rhinorrhea , mild sore throat, cough with yellow/delvis ar sputum, low grade fever of 99.9, and generalize d fatigue. Also complainin g of a painful sore in her R and L nostril both, admits to using Afrin nasal spray intermitte ntly over the last month. She has not checked her COVID status while she has been sick over the last month. She is using her inhalers which does seem to help slightly. Denies nausea, vomiting, headaches, ear pain, loss of smell, loss of taste, chest pain, SOB, abdominal pain, diarrhea, constipati on, or dysuria.No known COVID exposure- due to ongoing symptoms, will order COVID test- D/w pt the current pandemic of COVID-19 and call for social isolation in order to blunt the curve and minimize risk and spread. Encouraged patient and family to take restrictio ns seriously. They have verbalized understand ing of such.- will start augmentin and steroids to cover for acute rhinosinus itis- chest xray ordered, do not complete until covid test comes back negative- stop afrin nasal spray, may be contributi ng to congestion and nasal sores. Can use abx ointment and Vaseline to the sores- Drink lots of fluids, whatever you like except for alcoholic beverages. - Run a cool-mist humidifier in your room at night.- For sore throat, gargle warm salt water.- Get extra rest and do not over-exert yourself. [id number] [facility] BRIGHT (Adult Med) [address] [place] [phone] 0 08/30/2021 11:26:05 08/31/2021 11:11:41 Type 2 diabetes mellitus [id number] E11.9 Last A1C: 7.8 today (08/30/21), 8.8 (05/24/2021 ), 10.4 (02/13/2021 ), 9.5 (09/27/20), 9.3 (04/28/19) Fasting BG range: 110-130s Current Therapy: Taking Metformin 500 mg TID and Glipizide 5mg daily (was taking Januvia 100 mg but states it has not been at the pharmacy since her last visit 3 months ago) Foot Exam: NL 05/24/2021 Eye Exam: 08/25/21 - diagnosed w/ bilateral cataracts Microalbum in: NL 09/27/2020 Pneumovax 23: Discussed today. Pt states she tried to get it but thinks there was an insurance issue Pt was counseled on low carbohydra te diet to better manage diabetes. We went discussed pt's diet at length and I made specific dietary recommenda tions. I also encouraged regular exercise of 30-60 minutes most days of the week. Pt was encouraged to get yearly diabetic eye exams as well.Diagn osed with diabetes at age 14, admits to childhood obesity but also family history of Type 1 Diabetes (her mother).- c/w glipizide 5 mg QD - increase Metformin 500 mg from TID to QID- restart atorvastat in- return in 3 months, plan to f/u every 6 months if A1C is normal Chronic ob structive pulmonary disease [id number] J44.9 In the past she has been told she has beginning stages of COPD. She has been using her symbicort BID and albuterol BID.- refill inhalers Allergic rhinitis [id number] 04 J30.9 She has been using her symbicort BID and albuterol BID. She also takes benadryl daily and states it's due to the [place] air that causes stuffy nose and watery, pruritic eyes.- c/w benadryl prn at night- start cetirizine daily or prn- start flonase prn [id number] [facility] BR[facility] (Adult Med) [address] [place] [address] [phone] 0 10/26/2021 12:38:13 10/27/2021 15:56:15 Pain in right foot [id number] 84468 M79.671 2 weeks ago patient woke up with right foot bruising and intense pain to the right midfoot, fourth toe, fifth toe which radiates across the bottom of her foot. She says the pain is constant, worse in the morning, and feels like a burning/pu lsing/nasrin p pain that starts in her right fourth and fifth toe and shoots across the bottom of her foot. 1 day after onset of pain the patient was seen in the ER for the foot pain and was told it was a broken blood vessel. Since then the pain has worsened and become more constant, but the bruising as improved some per patient. Ordering STAT arterial and venous US of right lower extremity to rule out thrombosis Start tramadol 50 mg q12 hours PRN for pain x5 days, c/w IBU/tyleno l for daily pain [id number] [facility]ACE[facility] BR[facility] (Adult Med) [address] [place] [phone] 0 02/01/2022 09:18:05 02/02/2022 13:55:39 Type 2 diabetes mellitus [id number] E11.9 Last A1C: 6.9 today (8/18/22), 7.7 (02/01/22), 7.8 (08/30/21), 8.8 (05/24/2021 ), 10.4 (02/13/2021 ), 9.5 (09/27/20), 9.3 (04/28/19) Fasting BG range: 85-96s Current Therapy: Taking Metformin 500 mg QID and Glipizide 5mg daily Foot Exam: NL 05/24/2021 Eye Exam: 08/25/21 - diagnosed w/ bilateral cataracts Microalbum in: NL 09/27/2020 Pneumovax 23: Discussed today. Pt states she tried to get it but thinks there was an insurance issuePt reporting strict diet control and daily exercise Diagnosed with diabetes at age 14, admits to childhood obesity but also family history of Type 1 Diabetes (her mother). -c/w glipizide 5mg QD-switch metformin 500mg QID to 1000mg BID-c/w atorvastat in-c/w good diet control and exercise- RTC in 6 months Pain in right foot [id number] 71063 M79.671 At 10/26/21 appt pt reported she woke up with right foot bruising and intense pain to the right midfoot, fourth toe, fifth toe which radiates across the bottom of her foot. 1 day after onset of pain the patient was seen in the ER for the foot pain and was told it was a broken blood vessel. Stat arterial and venous US came back negative. Pt states following her appt, the pain completely resolved without any interventi ons. States she did not use any of the prescribed pain medication and did not make an appt with vascular.- Continue to monitor for return of sx- RTC if sx arise again Chronic ob structive pulmonary disease 88184857 J44.9 In the past she has been told she has beginning stages of COPD. She has been using her symbicort BID and albuterol BID and reports good resolution of sx.- refill inhalers Allergic rhinitis 017094 04 J30.9 Pt taking cetirizine and flonase daily for allergy sx. Reports good resolution of sx with these meds.- continue cetirizine daily- continue flonase daily Mixed anxi ety and depressive disorder [id number] F41.8 Hx of depression and anxiety due to multiple life stressors, deaths in the family, and losing job. Doing well on current medication .Denies SI/HI- c/w fluoxetine 20 mg qd Overweight [id number] E66 .3 Advised decreased portion sizes, good food choices, limited eating out or fast food and eliminate soda and juice from diet. Advised physical activity daily and offered encouragem ent to continue with positive changes made so far. [id number] [facility] (Adult Med) [address] [place] [address] [phone] 05/01/2022 08:59:47 05/02/2022 16:36:35 Cough [id number] R05.9 Pt feeling ill x6 days, as of today. Admits frequent cough with some mucus sputum, usually clear and occasional ly yellow in color, sore throat, left ear irritation (itching and ringing), fatigue, body aches, headache, intermitte nt mild vomiting, due to excessive cough.-Adm its covid exposure from her co-worker. -COVID and flu test ordered today-Symp toms likely due to covid, given exposure but will start abx to cover for bacterial component and possible start of otitis media and hx of COPD- c/w inhalers Type 2 tad betes mellitus [id number] E11.9 Last A1C: 6.9 today (02/01/22), 7.7 (02/01/22), 7.8 (08/30/21), 8.8 (05/24/2021 ), 10.4 (02/13/2021 ), 9.5 (09/27/20), 9.3 (04/28/19) Fasting BG range: 85-96s Current Therapy: Taking Metformin 500 mg QID and Glipizide 5mg daily Foot Exam: NL 05/24/2021 Eye Exam: 08/25/21 - diagnosed w/ bilateral cataracts Microalbum in: NL 09/27/2020 Pneumovax 23: Discussed today. Pt states she tried to get it but thinks there was an insurance issuePt reporting strict diet control and daily exercise Diagnosed with diabetes at age 14, admits to childhood obesity but also family history of Type 1 Diabetes (her mother). -c/w glipizide 5mg QD- c/w metformin 1000mg BID-c/w atorvastat in-c/w good diet control and exercise- limited discussion today due to concern for COVID, keep going will medication s but will f/u on chronic issues once patient is feeling better Viral syndrome [id number] B34.9 Pt feeling ill x6 days, as of today. Admits frequent cough with some mucus sputum, usually clear and occasional ly yellow in color, sore throat, left ear irritation (itching and ringing), fatigue, body aches, headache, intermitte nt mild vomiting, due to excessive cough.Admi ts covid exposure from her co-worker. - due to symptoms, will order COVID test and flu- D/w pt the current pandemic of COVID-19 and call for social isolation in order to blunt the curve and minimize risk and spread. Encouraged patient and family to take restrictio ns seriously. They have verbalized understand ing of such.- will start paxlovid to cover for COVID Overweight [id number] E66 .3 Advised decreased portion sizes, good food choices, limited eating out or fast food and eliminate soda and juice from diet. Advised physical activity daily and offered encouragem ent to continue with positive changes made so far. Smoker 54881689 F17.462 [id number] TRACEY BRIGHT [facility] (Adult Med) [address] [place] [address] 08/23/2022 09:59:55 08/28/2022 16:45:32 Mixed anxiety and depressive disorder [id number] F41.8 Hx of depression and anxiety due to multiple life stressors, deaths in the family, and losing job. Symptoms worse due to loss of her sister recently. Hydroxyzin e 25 mg is too strong and made her very groggy so has not been taking.Den ies SI/HI- increase fluoxetine to 40 mg- take hydroxyzin e HCL 10mg BID as needed, can still cause drowsiness but hopefully less than the 25 mg tablet-sta rt buspirone 5mg tablet BID for anxiety- f/u in 1 month Type 2 tad betes mellitus 43804453 E11.9 Last A1C: 6.9 today (08/23/2022) , 6.9 (02/01/22), 7.7 (02/01/22), 7.8 (08/30/21), 8.8 (05/24/2021 ), 10.4 (02/13/2021 ), 9.5 (09/27/20), 9.3 (04/28/19) Fasting BG range: 85-96s Current Therapy: Taking Metformin 500 mg QID and Glipizide 5mg daily Foot Exam: NL 05/24/2021, due at next visit Eye Exam: 08/25/21 - diagnosed w/ bilateral cataracts Microalbum in: NL 09/2021 Pneumovax 23: Discussed today. Pt states she tried to get it but thinks there was an insurance issuePt reporting strict diet control and daily exercise Diagnosed with diabetes at age 14, admits to childhood obesity but also family history of Type 1 Diabetes (her mother). -c/w glipizide 5mg QD- c/w metformin 1000mg BID-c/w atorvastat in-c/w good diet control and exercise- today we focused mostly on her anxiety/de pression, keep usual f/u and will be due to repeat labs and foot exam at next visit Bereavement [id number] Z63 .4 Sister last month and she is struggling overall. Has high anxiety and trouble falling asleep. Has good support system with her . No longer close with her familyPosi tive depression screening in the office today- offered counsellin g referral, pt is not considerin g it at this time- increase to fluoxetine 40 mg at home- hydroxyzin e sent to take at night Urge incon tinence of urine 05741799 N39.41 Pt complains of dysuria, urgency, cloudiness of urine for the past 4 days, had been drinking cranberry juice to flush it down which resolved her symptoms- dipstick normal today, will order culture to ensure no growth Chronic ob structive pulmonary disease 70677033 J44.9 In the past she has been told she has beginning stages of COPD. She has been using her symbicort BID and albuterol BID and reports good resolution of sx.- refill inhalers Allergic rhinitis 185028 04 J30.9 Pt taking cetirizine and flonase daily for allergy sx. Reports good resolution of sx with these meds.- continue cetirizine daily- continue flonase daily Overweight 698517052 E66 .3 BMI:27.2Ad vised decreased portion sizes, good food choices, limited eating out or fast food and eliminate soda and juice from diet. Advised physical activity daily and offered encouragem ent to continue with positive changes made so far. Alopecia areata 48912039 L63.9 Pt has a 2 well demarcated bald spots about 5 cm in diameter, oval, superior from temporal bone bilaterall y-provided education about alopecia areata [id number] [facility] (Adult Med) [address] [place] [address] 09/24/2022 10:20:08 09/25/2022 10:33:44 Overweight 181463887 E66.3 BMI:27.2Ha ving good progressiv e weight loss over the last few years, admits her diabetes diet has been very helpfulAdv ised decreased portion sizes, good food choices, limited eating out or fast food and eliminate soda and juice from diet. Advised physical activity daily and offered encouragem ent to continue with positive changes made so far. Mixed anxi ety and depressive disorder 582151168 F41.8 Hx of depression and anxiety due to multiple life stressors, deaths in the family, and losing job. Symptoms worse due to loss of her sister recently. Hydroxyzin e 25 mg is too strong and made her very groggy so has not been taking.Den ies SI/HI At today's visit, patient's symptoms have improved. Notes she notices an overall difference but she still has difficult days. She know that she will continue to have some difficult and days and this is apart of the process. She is now able to talk about her sister without getting upset. PHQ-9 8 today. She does continue to have thoughts at moment that the pain would stop if she were but no active plan. She has a good support system with her and children. - c/w fluoxetine to 40 mg- c/w hydroxyzin e HCL 10mg BID as needed, can still cause drowsiness but hopefully less than the 25 mg tablet- c/w buspirone 5mg tablet BID for anxiety- f/u in 2 months Alopecia areata [id number] L63.9 Pt has a 2 well demarcated bald spots about 5 cm in diameter, oval, superior from temporal bone bilaterall y-provided education about alopecia areata At today's visit, patient continues to have hair loss on bilateral sides of temporal bones. She continues to use biotin shampoo and conditione r with no improvemen t.- Recommende d trying OTC hair, skin, and nails supplement - Referral to Dermatolog y Rosacea [id number] L71.9 Patient noted having rosacea for several years. She has tried OTC medication s with no relief.- Start metronidaz ole 0.75% topical- dermatolog y referral given today Mild chron ic obstructive pulmonary disease 527690068 J44.9 Presenting to clinic stating she has been using her albuterol inhaler more with some increased dyspnea with the warmer weather. She usually has a dry cough but is now having a productive cough and SOB. - Start Azithromyc in- Start Medrol dose pack- ensure symptoms resolve and her breathing and cough return back to normal [id number] [facility] BRIGHT (Adult Med) [facility] [place] [address] 11/23/2022 10:22:58 11/26/2022 14:05:26 Mild chronic obstructive pulmonary disease 448339705 J44.9 Acute COPD exacerbati on resolved after treatment from last visit, doing well today with no acute complaints Alopecia areata [id number] L63.9 Pt has a 2 well demarcated bald spots about 5 cm in diameter, oval, superior from temporal bone bilaterall y. She continues to use biotin shampoo and conditione r with no improvemen t.- keep dermatolog y apt for 01/2023- Recommende d trying OTC hair, skin, and nails supplement Rosacea [id number] L71.9 Patient noted having rosacea for several years. She has tried OTC medication s with no relief. Only used metronidaz ole intermitte ntly- Start using metronidaz ole 0.75% topical daily BID- keep dermatolog y apt Overweight 752924220 E66 .3 BMI:26.7Ha ving good progressiv e weight loss over the last few years, admits her diabetes diet has been very helpfulAdv ised decreased portion sizes, good food choices, limited eating out or fast food and eliminate soda and juice from diet. Advised physical activity daily and offered encouragem ent to continue with positive changes made so far. Nausea and vomiting 1693 1999 R11.2 New recent cyclic vomiting x 5 days that occurs around 530-6 am with mild epigastric pain priorOnly other complaint is mild abominal pain that improves after vomiting. No new medication s. Admits to long-term marijuana smoking, no changes in her marijuana products used. Family history of GB disease. Hx of tubal but patient concerned for . - long discussion about my concern for CHS, patient wants to rule out other things first before stopping the marijuana since it really help her anxiety- will order labs but if negative, rec. stopping marijuana x 10 days to see if N/V improves [place] - lesion [id number] L84 Painful corn on bottom of left foot at base of 2nd-3rd toes, hurts to walk so limping today- referral to podiatry given Type 2 tad betes mellitus 23550431 E11.9 Last A1C: 6.9 (08/23/2022) , 6.9 (02/01/22), 7.7 (02/01/22), 7.8 (08/30/21), 8.8 (05/24/2021 ), 10.4 (02/13/2021 ), 9.5 (09/27/20), 9.3 (04/28/19) Fasting BG range: 85-96s Current Therapy: Taking Metformin 500 mg QID and Glipizide 5mg daily Foot Exam: NL 05/24/2021, due at next visit Eye Exam: 08/25/21 - diagnosed w/ bilateral cataracts Microalbum in: NL 09/2021 Pneumovax 23: Discussed today. Pt states she tried to get it but thinks there was an insurance issuePt reporting strict diet control and daily exercise Diagnosed with diabetes at age 14, admits to childhood obesity but also family history of Type 1 Diabetes (her mother). -c/w glipizide 5mg QD- c/w metformin 1000mg BID-c/w atorvastat in-c/w good diet control and exercise- will recheck levels today to ensure stable [id number] STEPHANIE WOOD DPM [facility] [address] [place] [address] 01/01/2023 10:04:24 01/02/2023 07:15:32 Onychomycosis 963680859 B35.1 The patient was educated regarding all treatment options that include topical and oral antifungal treatments . I discussed the options of taking a sample of the nail to confirm diagnosis. Nail clippings were not sent for pathology analysis. The patient was educated why and how the fungal infection evolved in their feet and the patient was given informatio n regarding how to prevent further infection. The patient was told to keep feet dry and change socks. The patient was told to be careful with old shoes and excessive sweating. The patient was educated regarding both OTC and prescripti on treatments . Rx Clotrimazo le solution 1% solution to apply to affected nails twice a day. Xerosis du e to atopic dermatitis 458388477 L85.3 The patient was educated regarding proper hydration of their feet/ankle s and the patient was given several recommenda tions for proper creams to protect/hy drate and keep the area healthy. Rx ammonium lactate lotion to be applied to feet daily, avoiding interspace s. Acquired h ammer toe of left foot [id number] 906601 M20.42 The patient was educated regarding how to mechanical ly stabilize their deformity. The patient was given education about shoe recommenda tions specific for the condition. The patient was educated about custom orthotics and how appropriat e shoes and orthotics can prevent further worsening of the deformity. The patient was educated about how bad shoe habits can worsen the condition. NSAIDS, P.T., injections and other conservati ve treatments were discussed. Both surgical and non surgical treatments were discussed, but conservati ve options were emphasized . Acquired h ammer toe of right foot [id number] 854226 M20.41 Type 2 tad betes mellitus 54510369 E11.9 Patient educated on proper diabetic foot care and the importance of tight glycemic control in regards to the prevention of diabetic manifestat ions and symptomato logy in lower extremity. Explained to patient the importance of keeping interdigit al spaces dry, not walking bare foot, having supportive shoe gear, using moisturize r to skin on feet daily especially in winter months, and checking feet daily for any new lesions or areas suspicious of trauma infection or ulceration . Explained to patient to return to ED if any change in foot health associated with signs of systemic infection including but not limited to nausea, vomiting, fever. [place] - lesion [id number] L84 Hyperkerat otic lesion noted to the Left foot submetatar pérez 2 region debrided using #15 blade to patient tolerance without incidence. No open lesions noted. Recommende d patient wear offloading pads to the site to prevent recurrence . Pain in left foot 509057 5758 33845 M79.916 [id number] [facility]ACE[facility] BRIGHT (Adult Med) [address] [place] [phone] 04/16/2023 08:46:55 04/17/2023 10:29:55 Overweight 224050149 E66.3 BMI:27Havi ng good progressiv e weight loss over the last few years, admits her diabetes diet has been very helpfulAdv ised decreased portion sizes, good food choices, limited eating out or fast food and eliminate soda and juice from diet. Advised physical activity daily and offered encouragem ent to continue with positive changes made so far. Acute sinusitis 13697083 J01.90 Developed since pressure and pain, R>L, about 1 week ago. It is accompanie d by yellow, green rhinorrhea and congestion . She has not been able to sleep due to the pain underneath her eye and congestion . + fatigue and body aches.Admi ts to poor dentition but not currently having any tooth pain at this time.Kelly john change in chronic dry cough- viral testing negative- due to severe pain and length of time of symptoms, will treat with abx to cover sinus infection, not good at swallowing pills so will send oral abx- get in to see dentist- ketorolac shot given to help with pain, avoid NSIADs for the next few days [id number] MD María Reich (Adult Med) [address] [place] [phone] 06/03/2023 11:16:21 06/04/2023 10:38:23 Body mass index 25-29 - overweight 941281832 Z68.27 27 Type 2 tad betes mellitus 91410718 E11.9 Last A1C:less than 7.0% 7-8% 8-9% great er than 9% 7.0Goal A1C less than:7.0%C urrent Therapy:me tformin sulfonylur eaStatin:y esACE/ARB: noFoot Exam:compl eted in the past 12 months-neg ative comp leted in the past 12 months-pos itive comp leted in the past 12 months- result unknown du e complete d today- negative Eye Exam:due- recommende d annual dilated eye examPatien t Education: healthy diet:yesex ercise:yes weight loss:yesfo ot care:yesco mplication s of uncontroll ed diabetes:y esmedicati on compliance :yesNext Visit: 3 week(s) mo nth(s) mon th(s)one Hyperlipidemia 89652325 E78.5 Discussed Diet/Exerc ise- decrease fatty fried foodsIncre ase water intake Depression screening 171 597847 Z13.31 PHQ9- positive [facility] screening 880586505 Z13.39 GAD7- positive Mixed anxi ety and depressive disorder 245825957 F41.8 Patient denies SIWants to increase medication Refuses counselor referralPa tient to call 911 if she is having SI Acute sinusitis 28953253 J01.90 Chronic ob structive pulmonary disease 61861507 J44.9 Patient has refills at pharmacy, call office if needs refills [id number] DINA FORD DPM [facility] [place] [address] 07/03/2023 10:34:20 07/09/2023 12:39:13 Acquired hammer toe of left foot [id number] M20.42 The patient was educated regarding how to mechanical ly stabilize their deformity. The patient was given education about shoe recommenda tions specific for the condition. The patient was educated about custom orthotics and how appropriat e shoes and orthotics can prevent further worsening of the deformity. The patient was educated about how bad shoe habits can worsen the condition. NSAIDS, P.T., injections and other conservati ve treatments were discussed. Both surgical and non surgical treatments were discussed, but conservati ve options were emphasized . Acquired h ammer toe of right foot [id number] 785333 M20.41 Type 2 tad betes mellitus [id number] E11.9 Patient educated on proper diabetic foot care and the importance of tight glycemic control in regards to the prevention of diabetic manifestat ions and symptomato logy in lower extremity. Explained to patient the importance of keeping interdigit al spaces dry, not walking bare foot, having supportive shoe gear, using moisturize r to skin on feet daily especially in winter months, and checking feet daily for any new lesions or areas suspicious of trauma infection or ulceration . Explained to patient to return to ED if any change in foot health associated with signs of systemic infection including but not limited to nausea, vomiting, fever. Pain in left foot [id number] 90628 M79.672 Benign bubba plasm of skin of lower limb 07551384 D23.72 Hyperkerat otic tissue debrided from left foot by sharp #15 blade . Additional destructio n by chemosurge ry and surgical curretteme nt of benign lesion and phenol. Patient is to leave bandage on for 6 hours then to clean in warm soapy water. Discussed with patient that they may experience blistering after treatment. If patient does blister then they are to do soaks in epsom salt. If they are concerned for infection then they are to call the office for antibiotic s. Discussed alternativ e treatments if we do not experience success with the wart in office, discussed that it takes mulitple treatments . Metatarsalgia [id number] M 77.41 M77.42 good supportive shoes with adequate width and height in the toes of the shoe. Recommened a supportive walking or running shoe discussed padding to shoes, metatarsal pads [id number] Bharti Christianson MD [facility] (Adult Med) [address] [place] [phone] 09/02/2023 10:43:25 09/03/2023 09:12:47 Type 2 diabetes mellitus [id number] E11.9 Last A1C:6.8 today (09/02/23), 7.0 (06/03/23) Goal A1C less than:7.0%C urrent Therapy:Me tformin 500mg BID, Glipizide 5mg QDStatin: Atorvastat in 40mgACE/AR B:noFoot Exam:Negat steve- 06/03/23 Eye Exam:due- recommende d annual dilated eye exam- referral given 06/03/23 patient to call and schedule appointmen t Patient Education: healthy diet:yesex ercise:yes weight loss:yesfo ot care:yesco mplication s of uncontroll ed diabetes:y esmedicati on compliance :yes Keep a food diaryFollo w a healthy heart low fat low cholestero l dietExerci se 50-60 minutes 5-6 times per weekIncrea se water intakeStop concentrat ed sugarsTake your diabetes medication dailyCheck blood sugars fasting and post prandial --keep a log--bring to next appointmen tStop concentrat ed sugars--fo llow 1500 meal planExerci se 50-60 minutes daily on most daysCheck your feet for sores, cuts, etc.See eye doctor once a yearsee dentist every 6 months Next Visit: 6 month(s)C/ W metformin 500mg twice dailyC/W glipizide 5mg daily Body mass index 25-29 - overweight [id number] Z68.27 BMI: 27.8 Advised decreased portion sizes, good food choices, limited eating out or fast food and eliminate soda and juice from diet. Advised physical activity daily and offered encouragem ent to continue with positive changes made so far. Depression screening 171 695246 Z13.31 PHQ9- Severe (16 out of 27) [facility] 603314663 Z13.39 GAD7- Moderate (15 out of 21) Mixed anxi ety and depressive disorder 108282769 F41.8 Be physically active. Doing 30 minutes of exercise every day is good for your body and mind. Start slowly if you find it difficult to get started. If you already exercise, continue doing so. Plan something nice for yourself every day. Include activities you have enjoyed in the past. Get enough sleep. Eat a balanced diet. If you are not hungry, eat small snacks instead of large meals. Do not drink alcohol, use illegal drugs, or take medication s that your doctor has not prescribed . They may interfere with your treatment. Spend time with family and friends. It may be helpful to talk openly about your depression with people you trust. Take your medication s exactly as prescribed . Don't make important life decisions while you are depressed. Depression can change the way you think. You will be able to make better decisions when you feel better. Think positively . Challenge negative thoughts with statements like I am hopeful ; Things will get better; and I can ask for the help I need. Write these statements down and read them often, even if you don't believe them yet. Be patient with yourself. It took time for your depression to develop and it will take time for your symptoms to improve. Don't assume too much or be too hard on yourself. Learn everything you can about depression from written and online materials. Check out behavioral health classes to learn more about how to deal with depression . Keep the numbers for these national suicide hotlines: 2-406-096- TALK (4-606-507 -3811) and 1-720-SUIC JOHN (9-482-954 -3312). If you or someone you know talks about suicide or feels hopeless, seek help immediatel y. -Pt does not take hydroxyzin e- makes her sleep all the time-Patie nt can take OTC melatonin to help with sleeping-C /W fluoxetine 60mg daily-Disc ussed goal of taking at least 30 minutes a day for self care to decompress and refresh Chronic ob structive pulmonary disease [id number] J44.9 Take medication as prescribed Allergic rhinitis 546084 04 J30.9 Infection of tooth 79456 8007 K04.7 [id number] Bharti Christianson MD [facility] (Adult Med) [address] [place] [phone] 03/23/2024 11:27:33 03/27/2024 17:29:26 Type 2 diabetes mellitus 26819655 E11.9 Last A1C:Today 6.7 (03/23/24), 6.8 today (09/02/23), 7.0 (06/03/23) Goal A1C less than:7.0%C urrent Therapy:Me tformin 500mg BID, Glipizide 5mg QDStatin:A torvastati n 40mgACE/AR B:noFoot Exam:Negat steve- 06/03/23 Eye Exam:due- recommende d annual dilated eye exam- pt to call and schedule appt Patient Education: healthy diet:yesex ercise:yes weight loss:yesfo ot care:yesco mplication s of uncontroll ed diabetes:y esmedicati on compliance :yes Keep a food diaryFollo w a healthy heart low fat low cholestero l dietExerci se 50-60 minutes 5-6 times per weekIncrea se water intakeStop concentrat ed sugarsTake your diabetes medication dailyCheck blood sugars fasting and post prandial --keep a log--bring to next appointmen tStop concentrat ed sugars--fo llow 1500 meal planExerci se 50-60 minutes daily on most daysCheck your feet for sores, cuts, etc.See eye doctor once a yearsee dentist every 6 months Next Visit: 6 month(s)C/ W metformin 500mg twice dailyC/W glipizide 5mg daily Mixed anxi ety and depressive disorder 987746610 F41.8 Be physically active. Doing 30 minutes of exercise every day is good for your body and mind. Start slowly if you find it difficult to get started. If you already exercise, continue doing so. Plan something nice for yourself every day. Include activities you have enjoyed in the past. Get enough sleep. Eat a balanced diet. If you are not hungry, eat small snacks instead of large meals. Do not drink alcohol, use illegal drugs, or take medication s that your doctor has not prescribed . They may interfere with your treatment. Spend time with family and friends. It may be helpful to talk openly about your depression with people you trust. Take your medication s exactly as prescribed . Don't make important life decisions while you are depressed. Depression can change the way you think. You will be able to make better decisions when you feel better. Think positively . Challenge negative thoughts with statements like I am hopeful ; Things will get better; and I can ask for the help I need. Write these statements down and read them often, even if you don't believe them yet. Be patient with yourself. It took time for your depression to develop and it will take time for your symptoms to improve. Don't assume too much or be too hard on yourself. Learn everything you can about depression from written and online materials. Check out behavioral health classes to learn more about how to deal with depression . Keep the numbers for these national suicide hotlines: -570-273- TALK (9-326-496 -6698) and 6-347-SUIC JOHN (7-072-290 -8738). If you or someone you know talks about suicide or feels hopeless, seek help immediatel y. -Pt does not take hydroxyzin e- makes her sleep all the time-Patie nt can take OTC melatonin to help with sleeping-D iscussed goal of taking at least 30 minutes a day for self care to decompress and refresh-Ti trate off fluoxetine 60mg daily-Star t sertraline 25mg daily- RTC 6 weeks-Pt to reschedule appt with counseling Chronic ob structive pulmonary disease 89446064 J44.9 Take medication as prescribed Allergic rhinitis 852124 04 J30.9 C/W cetirizine 10mg daily Depression screening 171 942711 Z13.31 PHQ9- Severe (10 out of 27) Mental [facility] screening 246550944 Z13.39 GAD7- Moderate (11 out of 21) Overweight 456666084 E66 .3 BMI 27.2 Smoker 17732697 F17.200 Heart murmur 79141939 R0 1.1 Noble on auscultati on [id number] MD [facility] (Adult Med) [address] [place] [phone] 03/09/2024 09:17:23 03/10/2024 12:35:27 Gynecologic examination 85281188 Z01.419 Nuswab and Pap samples taken today Overweight 258528140 E66 .3 BMI 27.5 Depression screening 171 528193 Z13.31 PHQ9- Moderate (14 out of 27) Mental hea lth screening 350911824 Z13.39 GAD7- Moderate (12 out of 21) [id number] MD [facility] (Adult Med) [address] [place] [phone] 05/04/2024 16:07:49 05/12/2024 12:48:55 Mixed anxiety and depressive disorder 417910159 F41.8 Be physically active. Doing 30 minutes of exercise every day is good for your body and mind. Start slowly if you find it difficult to get started. If you already exercise, continue doing so. Plan something nice for yourself every day. Include activities you have enjoyed in the past. Get enough sleep. Eat a balanced diet. If you are not hungry, eat small snacks instead of large meals. Do not drink alcohol, use illegal drugs, or take medication s that your doctor has not prescribed . They may interfere with your treatment. Spend time with family and friends. It may be helpful to talk openly about your depression with people you trust. Take your medication s exactly as prescribed . Don't make important life decisions while you are depressed. Depression can change the way you think. You will be able to make better decisions when you feel better. Think positively . Challenge negative thoughts with statements like I am hopeful ; Things will get better; and I can ask for the help I need. Write these statements down and read them often, even if you don't believe them yet. Be patient with yourself. It took time for your depression to develop and it will take time for your symptoms to improve. Don't assume too much or be too hard on yourself. Learn everything you can about depression from written and online materials. Check out behavioral health classes to learn more about how to deal with depression . Keep the numbers for these national suicide hotlines: 7-768-040- TALK (5-505-232 -9534) and 9-822-SUIC JOHN (8-041-248 -8896). If you or someone you know talks about suicide or feels hopeless, seek help immediatel y. -Pt does not take hydroxyzin e- makes her sleep all the time-Patie nt can take OTC melatonin to help with sleeping-D iscussed goal of taking at least 30 minutes a day for self care to decompress and refresh -Increase sertraline 25mg to 50mg daily- RTC 6 weeks Depression screening 171 535378 Z13.31 PHQ9- Moderate (10 out of 27) Mental [facility]a lth screening 885485602 Z13.39 GAD7- Moderate (7 out of 21) Overweight 012595344 E66 .3 BMI 27.6 Smoker 13927023 F17.200 1 PPD [id number] Bharti Christianson MD [facility] (Adult Med) [address] [place] [phone] 06/09/2024 14:41:16 06/12/2024 12:21:03 Mixed anxiety and depressive disorder 115334046 F41.8 Be physically active. Doing 30 minutes of exercise every day is good for your body and mind. Start slowly if you find it difficult to get started. If you already exercise, continue doing so. Plan something nice for yourself every day. Include activities you have enjoyed in the past. Get enough sleep. Eat a balanced diet. If you are not hungry, eat small snacks instead of large meals. Do not drink alcohol, use illegal drugs, or take medication s that your doctor has not prescribed . They may interfere with your treatment. Spend time with family and friends. It may be helpful to talk openly about your depression with people you trust. Take your medication s exactly as prescribed . Don't make important life decisions while you are depressed. Depression can change the way you think. You will be able to make better decisions when you feel better. Think positively . Challenge negative thoughts with statements like I am hopeful ; Things will get better; and I can ask for the help I need. Write these statements down and read them often, even if you don't believe them yet. Be patient with yourself. It took time for your depression to develop and it will take time for your symptoms to improve. Don't assume too much or be too hard on yourself. Learn everything you can about depression from written and online materials. Check out behavioral health classes to learn more about how to deal with depression . Keep the numbers for these national suicide hotlines: 7-021-273- TALK (4-694-397 -1206) and 1-159-SUIC JOHN (9-513-124 -0946). If you or someone you know talks about suicide or feels hopeless, seek help immediatel y. -Pt does not take hydroxyzin e- makes her sleep all the time-Patie nt can take OTC melatonin to help with sleeping-D iscussed goal of taking at least 30 minutes a day for self care to decompress and refresh -c/w sertraline 50mg daily- RTC 6 weeks Depression screening 171 255614 Z13.31 PHQ9- Moderate (10 out of 27) Mental hea lth screening 660944599 Z13.39 GAD7- Moderate (10 out of 21) Overweight 809542290 E66 .3 BMI 27.6 Fracture of tooth 625569 09 S02.5XXA Pt has appt with dentist 06/25/24Star t chlorhexid ine BIDStart acetaminop hen 500mg 2 tabs q6h prn [id number] MD [facility] (Adult Med) [address] [place] [phone] 07/20/2024 11:54:35 07/27/2024 16:32:00 Mixed anxiety and depressive disorder 279826376 F41.8 Be physically active. Doing 30 minutes of exercise every day is good for your body and mind. Start slowly if you find it difficult to get started. If you already exercise, continue doing so. Plan something nice for yourself every day. Include activities you have enjoyed in the past. Get enough sleep. Eat a balanced diet. If you are not hungry, eat small snacks instead of large meals. Do not drink alcohol, use illegal drugs, or take medication s that your doctor has not prescribed . They may interfere with your treatment. Spend time with family and friends. It may be helpful to talk openly about your depression with people you trust. Take your medication s exactly as prescribed . Don't make important life decisions while you are depressed. Depression can change the way you think. You will be able to make better decisions when you feel better. Think positively . Challenge negative thoughts with statements like I am hopeful ; Things will get better; and I can ask for the help I need. Write these statements down and read them often, even if you don't believe them yet. Be patient with yourself. It took time for your depression to develop and it will take time for your symptoms to improve. Don't assume too much or be too hard on yourself. Learn everything you can about depression from written and online materials. Check out behavioral health classes to learn more about how to deal with depression . Keep the numbers for these national suicide hotlines: 9-545-578- TALK (2-724-468 -5888) and 6-157-SUIC JOHN (9-394-163 -1066). If you or someone you know talks about suicide or feels hopeless, seek help immediatel y. -Pt does not take hydroxyzin e- makes her sleep all the time-Patie nt can take OTC melatonin to help with sleeping-D iscussed goal of taking at least 30 minutes a day for self care to decompress and refresh -c/w sertraline 50mg daily- Keep appointmen t with counseling .-Return to clinic in 3 months Depression screening 171 375029 Z13.31 PHQ9- Mild (5 out of 27) [facility] 192039342 Z13.39 GAD7- Mild (6 out of 21) Overweight 852284649 E66 .3 BMI 27.6 [id number] Bharti Christianson MD [facility] (Adult Med) [address] [place] [phone] 10/19/2024 09:13:22 10/20/2024 14:44:50 Mixed anxiety and depressive disorder 549565007 F41.8 Be physically active. Doing 30 minutes of exercise every day is good for your body and mind. Start slowly if you find it difficult to get started. If you already exercise, continue doing so. Plan something nice for yourself every day. Include activities you have enjoyed in the past. Get enough sleep. Eat a balanced diet. If you are not hungry, eat small snacks instead of large meals. Do not drink alcohol, use illegal drugs, or take medication s that your doctor has not prescribed . They may interfere with your treatment. Spend time with family and friends. It may be helpful to talk openly about your depression with people you trust. Take your medication s exactly as prescribed . Don't make important life decisions while you are depressed. Depression can change the way you think. You will be able to make better decisions when you feel better. Think positively . Challenge negative thoughts with statements like I am hopeful ; Things will get better; and I can ask for the help I need. Write these statements down and read them often, even if you don't believe them yet. Be patient with yourself. It took time for your depression to develop and it will take time for your symptoms to improve. Don't assume too much or be too hard on yourself. Learn everything you can about depression from written and online materials. Check out behavioral health classes to learn more about how to deal with depression . Keep the numbers for these national suicide hotlines: 4-392-434- TALK (1-133-115 -3390) and 1-860-SUIC JOHN (7-571-636 -1839). If you or someone you know talks about suicide or feels hopeless, seek help immediatel y. 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 The patient understand s this. We will go ahead get an EMG and nerve conduction test for her to further define where the ulnar nerve is being compressed . Discussed this with the patient in layman's terms. We will see patient back after the EMG and nerve conduction test just performed Health Concerns Section Related Observation LastModified by Organization Detai ls LastModified Time None Recorded Concern Status LastModified by Organization Details LastModified Time None Recorded Advance Directives Directive N: Payers Encounter Date Sequence Insurance Name Policy Number Policy [place] Covered Member ID [place] Member ID Guarantor Name 05/04/2024 1 [facility] - DOS ON OR AFTER 20 (MEDICAID REPLACEMENT - HMO) Amber Danielle [id number] Amber Danielle 06/09/2024 1 [facility] - DOS ON OR AFTER 20 (MEDICAID REPLACEMENT - HMO) Amber Danielle [id number] Amber Danielle 07/20/2024 1 [facility] - DOS ON OR AFTER 20 (MEDICAID REPLACEMENT - HMO) Amber Danielle [id number] Amber Danielle 10/19/2024 1 [facility] - DOS ON OR AFTER 20 (MEDICAID REPLACEMENT - HMO) Amber Danielle [id number] Amber Danielle 10/22/2024 1 [facility] - DOS ON OR AFTER 20 (MEDICAID REPLACEMENT - HMO) Amber Shashi [id number] Amber Danielle Notes Date Note Type Note Provider Name and Address Organization Details Recorded Time 05/04/2024 text/html Anxiety/Depressi onR eported bypatient.Severity: denies suicidal ideations; able to maintain relationships; does not interfere with activities of daily living Context:no major life stressors Associated Symptoms:denies homicidal ideations; no significant weight gain; no significant weight loss; no visual/auditory hallucinations; no delusions; no shortness of breath; mood good; no anxiety; no crying spells; no panic; no isolation; appetite good; energy good; no apathy; maintaining functionality;sleep disturbances(feelin g more tired) 43 y/o F here for f/u. Pt states she is doing okay on medication change. She has been more tired lately. She states she goes to bed around 1 am and gets up around 8 am. She has also noticed that her appetite has decreased. No other complaints at this time. PEDRO WOODS PA-C Attn: [address] [place], [address], [facility] 05/04/2024 16:42:41 06/09/2024 text/html 44 y/o F here for f/u anxiety/depression. Pt states she has been feeling fine with this increase in medication. She has been stressed d/t holiday season. She has been stressed d/t breaking a tooth, has appt with dentist on 06/25/24, but has been in pain. Denies fever, chills, N/V/D, JACK, SI/HI. PEDRO WOODS PA-C Attn: [address] [place], [address], [facility] 06/09/2024 15:08:39 07/20/2024 text/html 44-year-old female here for follow-up anxiety and depression. Patient states doing well on current medication. Patient states has been able to sleep all right. Denies any SI/HI. Patient thinks this medication is the right dosage for the time being does not want to increase dosage at this time. PEDRO WOODS PA-C Attn: [address] , [place], [address], [facility] 07/20/2024 13:00:06 10/19/2024 text/html Anxiety/Depressi onR eported bypatient.Quality:s ymptoms improved Severity:denies suicidal ideations; able to maintain relationships; does not interfere with activities of daily living Context:stressed from carpal tunnel and back pain Associated Symptoms:denies homicidal ideations; no significant weight gain; no significant weight loss; no visual/auditory hallucinations; no delusions; no shortness of breath; mood good; no anxiety; no crying spells; no panic; no isolation; sleeping well; appetite good; energy good; no apathy; maintaining functionality Patient is a 44 year old female here for anxiety/depression F/U. She states she is doing well on the sertaline and feel as though her depressive sx are improving. She mentions that she'd like to get her lower back pain and carpal tunnel pain under control. She states she wears a wrist splint on her R wrist 24 hours and feels her 2nd and third finger go numb which ilicts her deep pain. She states ibuprofen does not help.She also states she has had worsening R lower back pain that shoot does her right leg. She believes this is due to the epidural she recieved from labor 25 years ago. She states the pain is worse in the morning and it is hard for her to get out of bed. She denies any JACK, N/V. PEDRO WOODS PA-C Attn: [address] [facility], [place], [address], [facility] 10/19/2024 10:48:15 10/22/2024 text/html patient is a 44-year-old female who relates numbness of the ring and small fingers of the right hand. Patient has been wearing a splint from their advice of her physician and it did help this problem it 1st but patient still relates nocturnal symptoms and when she uses her hand a lot the ring and small finger go to sleep. This has been going on for several months. Patient denies any fever chills or bleeding or discharge Hermann Murrieta MD [address] [place], [address], [facility] 10/22/2024 15:19:39 OBGyn Episode No OBEpisode recorded.
--- OUTSIDE RECORDS SUMMARY | 2024-11-11 20:21 | XMS_ITS | CONTINUITY OF CARE DOCUMENT ---
Author Name cassie matthews Address Unknown Organization [facility] Address [address] [place] [address] Phone [phone] Care Team Providers Care Monitoring Engineer Name Role Phone [place] Marshall MD Unavailable RUSSELL URIAS Unavailable RUSSELL URIAS Unavailable [phone] [employer] Payer name Policy type / Coverage type [employer] MEDICAID (2) Medicaid [id number]
== END 2024-11-11 20:24 | disposition left against medical advice (07) ==
PROVIDERS: Emergency Medicine; Emergency Provider Registered Nurse; PCP Psychiatry & Neurology Neurology
DX: R07.9 Chest pain, unspecified (principal); R06.02 Shortness of breath; E11.9 Type 2 diabetes mellitus without complications; I10 Essential (primary) hypertension
CPT/HCPCS: 36415; 71046; 80053; 83880; 84484; 85025; 85610; 85730; 93005; 99284